=== PATIENT | female | born 1975 | race Two or more races ===

== ENCOUNTER 2024-05-16 22:31 | Inpatient (IN) | payer OTHER ==
[~2024-05-16] VITALS: Ht 157.5 cm; Wt 102.1 kg
[~2024-05-16 22:31] MED LIST: AZOR 5/40 MG TA1 TAB
[2024-05-16] MEDS ORDERED: METFORMIN HCL500 M3 (23:10)
[2024-05-16] MEDS ORDERED: SYNTHROID125 MCG (23:10)
[2024-05-16] MEDS ORDERED: AVAPRO75 MG (23:10)
[2024-05-17] MEDS ORDERED: GUAIFENESIN 200 MG/10 ML BLIST.PACK PO STA (00:17)
[2024-05-17] MEDS ORDERED: METHYLPREDNISOLONE SOD SUCC 125 MG VIAL IV STA (00:18)
[2024-05-17] MEDS ORDERED: ACETAMINOPHEN 500 MG GEL..CAP PO STA (00:19)
[2024-05-17] MEDS ORDERED: ALBUTEROL SULFATE 3 ML/2.5 MG AMPUL.NEB IH SCH ×2 (00:30→02:00)
[2024-05-17 00:40] LABS: HEMATOCRIT 38.8 % (36.0-45.00); HEMOGLOBIN 13.3 g/dL (12.0-15.00); MEAN CELL VOLUME 83.6 fL (80.00-100.00); MEAN CORPUSCULAR HEMOGLOBIN 28.7 pg (27.00-32.0); MEAN CORPUSCULAR HGB CONC 34.3 g/dl (32.0-36.0); PLATELET COUNT 266 K/uL (150-450); RED BLOOD COUNT 4.64 M/uL (4.00-6.00); RED CELL DISTRIBUTION WIDTH 14.1 % (11.5-14.5)
[2024-05-17 01:03] LABS: INR 1.05; PARTIAL THROMBOPLASTIN TIME 28.5 SECONDS (22.0-34.0); PROTHROMBIN TIME 11.4 SECONDS (9.0-11.5)
[2024-05-17 01:07] LABS: ALBUMIN 3.2 gm/dL (3.4-5.0); BILIRUBIN TOTAL 0.64 mg/dL (0.3-1.2); CALCIUM 8.9 mg/dL (8.5-10.1); CREATININE SERUM 0.88 mg/dL (0.55-1.02); GFR 68.01; GLOBULINA 4.6 G/DL (2.4-3.5); POTASSIUM 3.12 mEq/L (3.5-5.1); TOTAL PROTEIN 7.8 gm/dL (6.4-8.2)
[2024-05-17] MEDS ORDERED: AZITHROMYCIN 500 MG VIAL IV STA (01:42)
[2024-05-17 01:52] LABS: ABG PH 7.494 (7.35-7.45); ABG PO2 49.8 mmHg (80-100); ABG pCO2 29.8 mmHg (35-45); BASE EXCESS 0.3 mmol/l; BICARBONATE 22.4 mmol/l (23-25); SaO2 88.4 %; Tco2 23.3 mmol/l; allen test SATISFACTORY; o2 21 %; puncture site RADIAL RIGHT
[2024-05-17 02:25] LABS: PH,URINE 6.5 (5.0-8.0); URINE APPEARANCE Clear; URINE BILIRRUBIN Negative (NEGATIVE); URINE BLOOD Moderate; URINE COLOR Yellow; URINE GLUCOSE Negative (NEGATIVE); URINE KETONE Negative (NEGATIVE); URINE LEUKOCYTE Negative; URINE NITRATE Negative
[2024-05-17 02:30] LABS: URINE BACTERIA 2785.8 uL (0.0-1933); URINE RBC 22.8 uL (0.0-20.8)
[2024-05-17 02:36] LABS: URINE PROTEIN 300 (NEGATIVE)
[2024-05-17] MEDS ORDERED: 0.9 % SODIUM CHLORIDE 1,000 ML IV STA (08:20)
[2024-05-17] MEDS ORDERED: DEXTROSE 50 % IN WATER 0.5 G/ML DISP.SYRIN IV PRN (08:30)
[2024-05-17] MEDS ORDERED: POTASSIUM CHLORIDE 20MEQ/100ML H2O PB IV ONE (08:30)
[2024-05-17] MEDS ORDERED: INSULIN LISPRO 1,000 UNIT/10 ML UNITS SUBCUTANEO PRN (08:30)
[2024-05-17] MEDS ORDERED: RINGERS SOLUTION,LACTATED 1,000 ML IV SCH (08:30)
[2024-05-17 08:43] LABS: ABG PH 7.392 (7.35-7.45); ABG PO2 79.7 mmHg (80-100); ABG pCO2 35.5 mmHg (35-45); BASE EXCESS -3.1 mmol/l; BICARBONATE 21.1 mmol/l (23-25); SaO2 95.4 %; Tco2 22.2 mmol/l
[2024-05-17] MEDS ORDERED: CEFTRIAXONE SODIUM 2,000 MG VIAL IV SCH (09:00)
[2024-05-17] MEDS ORDERED: AZITHROMYCIN 500 MG in 0.9 % SODIUM CHLORIDE 250 ML IV SCH (09:00)
[2024-05-17] MEDS ORDERED: LEVALBUTEROL HCL 0.63 MG/3 ML SOLUTION IH SCH (09:00)
[2024-05-17] MEDS ORDERED: OSELTAMIVIR PHOSPHATE 75 MG CAPSULE PO SCH (09:00)
[2024-05-17] MEDS ORDERED: IPRATROPIUM BROMIDE 0.5 MG/2.5 ML AMPUL.NEB IH SCH (09:00)
[2024-05-17] MEDS ORDERED: FAMOTIDINE/PF 20 MG/2 ML VIAL IV SCH (09:00)
[2024-05-17] MEDS ORDERED: ENOXAPARIN SODIUM 40 MG/0.4 ML SYRINGE SUBCUTANEO SCH (09:00)
[2024-05-17] MEDS ORDERED: POTASSIUM BICARBONATE/CIT AC 25 MEQ TABLET.EFF PO SCH (09:00)
[2024-05-17 09:31] VITALS: BP 102/73
[2024-05-17 09:42] LABS: MAGNESIUM 2.1 mg/dL (1.8-2.4); PHOSPHOROUS 4.7 mg/dL (2.5-4.9)
[2024-05-17 09:51] LABS: CHOL HDL RATIO 5.1 (0-5.0); TSH 1.64 uIU/mL (0.358-3.74)
[2024-05-17 17:34] VITALS: BP 139/83
[2024-05-17 22:44] LABS: allen test SATISFACTORY; o2 50 %; puncture site RADIAL LEFT
[2024-05-18 00:45] VITALS: BP 121/75; O2SAT 97
[2024-05-18] MEDS ORDERED: BENZONATATE 100 MG CAPSULE PO PRN (01:15)
[2024-05-18 06:13] LABS: ABG PH 7.435 (7.35-7.45); ABG pCO2 34.7 mmHg (35-45)
[2024-05-18 06:14] LABS: ABG PO2 57.2 mmHg (80-100); BASE EXCESS -0.8 mmol/l; BICARBONATE 22.8 mmol/l (23-25); SaO2 90.3 %; Tco2 23.8 mmol/l; allen test SATISFACTORY; o2 50 %; puncture site RADIAL LEFT
[2024-05-18 09:04] VITALS: BP 149/84
[2024-05-18 10:40] LABS: HEMATOCRIT 36.7 % (36.0-45.00); HEMOGLOBIN 12.3 g/dL (12.0-15.00); MEAN CELL VOLUME 84.2 fL (80.00-100.00); MEAN CORPUSCULAR HEMOGLOBIN 28.2 pg (27.00-32.0); MEAN CORPUSCULAR HGB CONC 33.4 g/dl (32.0-36.0); PLATELET COUNT 289 K/uL (150-450); RED BLOOD COUNT 4.36 M/uL (4.00-6.00); RED CELL DISTRIBUTION WIDTH 14.7 % (11.5-14.5)
[2024-05-18 11:25] LABS: ALBUMIN 2.8 gm/dL (3.4-5.0); BILIRUBIN TOTAL 0.55 mg/dL (0.3-1.2); CALCIUM 8.5 mg/dL (8.5-10.1); CREATININE SERUM 0.71 mg/dL (0.55-1.02); GFR 87.13; GLOBULINA 3.8 G/DL (2.4-3.5); MAGNESIUM 2.3 mg/dL (1.8-2.4); POTASSIUM 4.78 mEq/L (3.5-5.1); TOTAL PROTEIN 6.6 gm/dL (6.4-8.2)
[2024-05-18 11:34] LABS: PHOSPHOROUS 1.8 mg/dL (2.5-4.9)
[2024-05-18] MEDS ORDERED: LEVALBUTEROL HCL 0.63 MG/3 ML SOLUTION IH SCH (13:00)
[2024-05-18 16:42] VITALS: BP 133/85; O2SAT 94
[2024-05-19 00:49] VITALS: BP 133/85; O2SAT 92
[2024-05-19 05:11] LABS: ALBUMIN 2.7 gm/dL (3.4-5.0); BILIRUBIN TOTAL 0.68 mg/dL (0.3-1.2); CALCIUM 8.4 mg/dL (8.5-10.1); CREATININE SERUM 0.56 mg/dL (0.55-1.02); GFR 114.59; GLOBULINA 3.9 G/DL (2.4-3.5); POTASSIUM 4.3 mEq/L (3.5-5.1); TOTAL PROTEIN 6.6 gm/dL (6.4-8.2)
[2024-05-19 05:16] LABS: HEMOGLOBIN 12.3 g/dL (12.0-15.00); MEAN CELL VOLUME 84.3 fL (80.00-100.00); MEAN CORPUSCULAR HEMOGLOBIN 28.8 pg (27.00-32.0); MEAN CORPUSCULAR HGB CONC 34.2 g/dl (32.0-36.0); PLATELET COUNT 297 K/uL (150-450); RED BLOOD COUNT 4.27 M/uL (4.00-6.00); RED CELL DISTRIBUTION WIDTH 14.4 % (11.5-14.5)
[2024-05-19 09:35] VITALS: BP 151/83; O2SAT 99
[2024-05-19 16:34] VITALS: BP 151/98; O2SAT 97
[2024-05-19] MEDS ORDERED: BENZONATATE 100 MG CAPSULE PO SCH (17:00)
[2024-05-19] MEDS ORDERED: CODEINE PHOSPHATE/GUAIFENESIN 5 ML ML PO SCH (19:44)
[2024-05-19] MEDS ORDERED: INSULIN GLARGINE,HUM.REC.ANLOG 1,000 UNITS/10 ML UNITS SUBCUTANEO SCH (21:00)
[2024-05-19] MEDS ORDERED: IPRATROPIUM BROMIDE 0.5 MG/2.5 ML AMPUL.NEB IH SCH (21:00)
[2024-05-20 02:02] VITALS: BP 138/85; O2SAT 98
[2024-05-20 08:26] VITALS: BP 126/76; O2SAT 94
[2024-05-20] MEDS ORDERED: INSULIN GLARGINE,HUM.REC.ANLOG 1,000 UNITS/10 ML UNITS SUBCUTANEO SCH (09:00)
[2024-05-20] MEDS ORDERED: BENZONATATE 200 MG CAPSULE PO SCH (09:00)
[2024-05-20] MEDS ORDERED: METHYLPREDNISOLONE SOD SUCC 40 MG VIAL IV SCH (17:49)
[2024-05-20 18:11] VITALS: BP 145/91; O2SAT 98
[2024-05-21 01:24] VITALS: BP 142/88
[2024-05-21 09:00] VITALS: BP 138/82; O2SAT 98
[2024-05-21] MEDS ORDERED: FAMOtidine 20 MG TABLET PO SCH (09:00)
[2024-05-21] MEDS ORDERED: METHYLPREDNISOLONE SOD SUCC 40 MG VIAL IV SCH (17:00)
[2024-05-21 19:57] VITALS: BP 146/85
[2024-05-22 00:04] VITALS: BP 130/76; O2SAT 98
[2024-05-22 09:09] VITALS: BP 134/77
[2024-05-22 16:14] VITALS: BP 137/86; O2SAT 95
[2024-05-23 03:20] VITALS: BP 138/75; O2SAT 96
[2024-05-23 07:38] LABS: CALCIUM 9.1 mg/dL (8.5-10.1); CREATININE SERUM 0.81 mg/dL (0.55-1.02); GFR 74.84; MAGNESIUM 2.5 mg/dL (1.8-2.4); POTASSIUM 4.73 mEq/L (3.5-5.1)
[2024-05-23 08:00] LABS: HEMATOCRIT 35.6 % (36.0-45.00); HEMOGLOBIN 11.8 g/dL (12.0-15.00); MEAN CELL VOLUME 84.9 fL (80.00-100.00); MEAN CORPUSCULAR HEMOGLOBIN 28.1 pg (27.00-32.0); MEAN CORPUSCULAR HGB CONC 33.1 g/dl (32.0-36.0); PLATELET COUNT 442 K/uL (150-450); RED BLOOD COUNT 4.19 M/uL (4.00-6.00); RED CELL DISTRIBUTION WIDTH 14.4 % (11.5-14.5)
[2024-05-23] MEDS ORDERED: INSULIN LISPRO 1,000 UNIT/10 ML UNITS SUBCUTANEO SCH (08:00)
[2024-05-23 08:48] VITALS: BP 118/68
[2024-05-23] MEDS ORDERED: INSULIN GLARGINE,HUM.REC.ANLOG 1,000 UNITS/10 ML UNITS SUBCUTANEO SCH (09:00)
[2024-05-23 16:32] VITALS: BP 146/89; O2SAT 95
[2024-05-24 02:16] VITALS: BP 120/70; O2SAT 99
[2024-05-24] MEDS ORDERED: INSULIN LISPRO 1,000 UNIT/10 ML UNITS SUBCUTANEO SCH (08:00)
[2024-05-24] MEDS ORDERED: INSULIN GLARGINE,HUM.REC.ANLOG 1,000 UNITS/10 ML UNITS SUBCUTANEO SCH (09:00)
[2024-05-24 11:32] VITALS: BP 113/71; O2SAT 97
[2024-05-24 13:50] LABS: ABG PH 7.418 (7.35-7.45); ABG PO2 73.3 mmHg (80-100); ABG pCO2 40.4 mmHg (35-45); BICARBONATE 25.5 mmol/l (23-25); SaO2 94.8 %; Tco2 26.7 mmol/l; o2 21 %
[2024-05-24 13:51] LABS: allen test SATISFACTORY; puncture site RADIAL RIGHT
[2024-05-24 18:08] VITALS: BP 123/74; O2SAT 96
[2024-05-25 00:12] VITALS: BP 121/74; O2SAT 93
[2024-05-25 02:03] VITALS: O2SAT 95
[2024-05-25 09:17] VITALS: BP 148/55; O2SAT 97
[2024-05-25] MEDS ORDERED: INSULIN GLARGINE,HUM.REC.ANLOG 1,000 UNITS/10 ML UNITS SUBCUTANEO SCH (10:00)
[2024-05-25] MEDS ORDERED: INSULIN LISPRO 1,000 UNIT/10 ML UNITS SUBCUTANEO SCH (12:00)
[2024-05-25] MEDS ORDERED: BENZONATATE200 M1 PO (12:53)
[2024-05-25] MEDS ORDERED: LEVALBUTER0.31 MG/3 IH (12:53)
[2024-05-25] MEDS ORDERED: JANUMET 50-5001 EACH PO (12:54)
[2024-05-25 16:22] VITALS: BP 140/80; O2SAT 98
[2024-05-26] MEDS ORDERED: METHYLPREDNISOLONE SOD SUCC 40 MG VIAL IV SCH (09:00)
== END 2024-05-25 17:04 | disposition home or self-care (01) | DRG 195 ==
LOC: ER 22:33 → MEDI 05-17 09:19 → SEC-K 05-17 09:19 → MEDI 05-17 12:23
PROVIDERS: General Practice; Internal Medicine; ADMIT Internal Medicine; ATTEND Internal Medicine
PROC: BW24ZZZ Computerized Tomography (CT Scan) of Chest and Abdomen (ICD-10-PCS; principal; 2024-05-17)
DX: J10.00 Influenza due to other identified influenza virus with unspecified type of pneumonia (principal); R09.02 Hypoxemia; E11.65 Type 2 diabetes mellitus with hyperglycemia; G47.33 Obstructive sleep apnea (adult) (pediatric); E03.9 Hypothyroidism, unspecified; E78.5 Hyperlipidemia, unspecified; Z79.4 Long term (current) use of insulin; I10 Essential (primary) hypertension

== ENCOUNTER 2024-06-07 04:17 | Inpatient (IN) | payer OTHER ==
[~2024-06-07] VITALS: Ht 157.5 cm; Wt 99.8 kg
[~2024-06-07 04:17] MED LIST changes: +AVAPRO75 MG; +BENZONATATE200 M1 PO; +JANUMET 50-5001 EACH PO; +LEVALBUTER0.31 MG/3 IH; +METFORMIN HCL500 M3; +SYNTHROID125 MCG
--- NOTE | 2024-06-07 04:26 | NUR ---
PACIENTE FEMENINA ALERTA Y ORIENTADA X3, REFIERE DOLOR DE PECHO Y DIFICULTAD AL RESPIRAR.
[2024-06-07] MEDS ORDERED: IPRATROPIUM/ALBUTEROL SULFATE 3 ML AMPUL.NEB IH STA (04:40)
--- NOTE | 2024-06-07 04:40 | NUR ---
SE LE ORIENTA A PACIENTE SOBRE LA ORDEN MEDICA, REFIERE ENTENDER LAS MISMAS. SE LE REALIZA LA PLACA SAMANTHA LA ORDEN MEDICA.
[2024-06-07] MEDS ORDERED: RINGERS SOLUTION,LACTATED 1,000 ML IV STA (04:43)
[2024-06-07 05:04] LABS: MEAN CELL VOLUME 84.8 fL (80.00-100.00); MEAN CORPUSCULAR HEMOGLOBIN 28.3 pg (27.00-32.0); MEAN CORPUSCULAR HGB CONC 33.4 g/dl (32.0-36.0); PLATELET COUNT 277 K/uL (150-450); RED BLOOD COUNT 4.24 M/uL (4.00-6.00); RED CELL DISTRIBUTION WIDTH 14.6 % (11.5-14.5)
[2024-06-07 05:30] LABS: CALCIUM 9.3 mg/dL (8.5-10.1); CREATININE SERUM 0.93 mg/dL (0.55-1.02); GFR 63.81; POTASSIUM 3.52 mEq/L (3.5-5.1)
[2024-06-07 06:09] LABS: ABG PH 7.492 (7.35-7.45); ABG PO2 62.5 mmHg (80-100); ABG pCO2 24.4 mmHg (35-45); BASE EXCESS -3.1 mmol/l; BICARBONATE 18.2 mmol/l (23-25); SaO2 93.4 %; o2 21 %
[2024-06-07 06:10] LABS: allen test SATISFACTORY; puncture site RADIAL RIGHT
[2024-06-07] MEDS ORDERED: ACETAMINOPHEN 500 MG GEL..CAP PO ONE (06:30)
[2024-06-07] MEDS ORDERED: levoFLOXacin IN DEXTROSE 5 % 5 MG/ML PIGGYBAG IV STA (06:37)
[2024-06-07] MEDS ORDERED: IPRATROPIUM/ALBUTEROL SULFATE 3 ML AMPUL.NEB IH SCH (12:00)
--- NOTE | 2024-06-07 16:27 | NUR ---
SE RECIBE PTE ENTREGADO POR SUPP TERE. PTE ALERTA Y ORIENTADA X3 LA MISMA SE OBSERVA CON #20 EN BRAZO DERECHO BAJANDO R/L @ 60ML/HR. SE OBSERVA CONECTADA A MONITOR CARDIACO Y OXIMETRIA DE PULSO. EXTREMIDADES SIN EDEMAS NI ERITEMAS. ABDOMEN DEPRESIBLE AL TACTO CON PERISTARSIS PRESENTE. AREA PERIANAL MONSE DE ENROJECIMEINTO SIN HUMPHREYS EN POSICION ORINANDO EXPONTANEO. PACIENTE CON CANULA NASAL A 2 LITROS LA CUAL TOLERA. SE REALIZAN VITALES Y SE DOCUMENTAN. PTE EN ESPERA DE CONSULTA CON DR STAN SAINI POR PULMONIA.
--- NOTE | 2024-06-07 17:50 | NUR ---
SE HACE ENTREGA DE PTE A RN HART SOBRE ORDENES DE PACIENTE Y ORDENES PENDIENTES DE LA MISMA. SE COLOCA A PTE EN CAMA EN AREA DE SEC K Y SE CONECTA A MONITOR CARDIACO Y OXIMETRIA DE PULSO. CANULA NASAL A 3 LITROS LA CUAL TOLERA EN TOTALIDAD. PACIENTE ALERTA Y ORIENTADA X3, VENPUNCIONES PATENTES.
[2024-06-07] MEDS ORDERED: CEFTRIAXONE SODIUM 2,000 MG in 0.9 % SODIUM CHLORIDE 100 ML IV SCH (20:49)
[2024-06-07] MEDS ORDERED: AZITHROMYCIN 500 MG in DEXTROSE 5 % IN WATER 250 ML IV SCH (20:50)
[2024-06-07] MEDS ORDERED: BUDESONIDE 0.5 MG/2 ML AMPUL.NEB IH SCH (21:00)
[2024-06-07] MEDS ORDERED: GUAIFEN/DEXTROMETHORPHAN/PE 10 ML BLIST.PACK PO SCH (21:00)
[2024-06-07] MEDS ORDERED: 0.9 % SODIUM CHLORIDE 1,000 ML IV SCH (21:00)
[2024-06-07] MEDS ORDERED: INSULIN LISPRO 1,000 UNIT/10 ML UNITS SUBCUTANEO PRN (21:00)
[2024-06-07] MEDS ORDERED: ACETAMINOPHEN 500 MG GEL..CAP PO PRN (21:00)
[2024-06-07] MEDS ORDERED: DEXTROSE 50 % IN WATER 0.5 G/ML DISP.SYRIN IV PRN (21:00)
[2024-06-07 21:45] VITALS: BP 119/60
[2024-06-07 22:27] LABS: INR 1.06; PROTHROMBIN TIME 11.5 SECONDS (9.0-11.5)
[2024-06-07 23:49] VITALS: BP 135/77; O2SAT 98
[2024-06-08] MEDS ORDERED: LEVALBUTEROL HCL 1.25 MG/3 ML SOLUTION IH SCH
[2024-06-08] MEDS ORDERED: IPRATROPIUM BROMIDE 0.5 MG/2.5 ML AMPUL.NEB IH SCH (02:00)
[2024-06-08] MEDS ORDERED: LEVOTHYROXINE SODIUM 125 MCG TABLET PO SCH (06:00)
[2024-06-08 07:39] VITALS: BP 108/75; O2SAT 97
[2024-06-08 09:00] LABS: PH,URINE 5.5 (5.0-8.0); URINE APPEARANCE Clear; URINE BILIRRUBIN Negative (NEGATIVE); URINE BLOOD Negative; URINE COLOR Yellow; URINE GLUCOSE Negative (NEGATIVE); URINE KETONE Negative (NEGATIVE); URINE LEUKOCYTE Small; URINE NITRATE Negative; URINE PROTEIN 30 (NEGATIVE); URINE UROBILINOGEN 0.2 E.U./dl
[2024-06-08] MEDS ORDERED: ENOXAPARIN SODIUM 40 MG/0.4 ML SYRINGE SUBCUTANEO SCH (09:00)
[2024-06-08] MEDS ORDERED: levoFLOXacin IN DEXTROSE 5 % 150 ML IV SCH (09:00)
[2024-06-08] MEDS ORDERED: AMLODIPINE BESYLATE 5 MG TABLET PO SCH (09:00)
[2024-06-08] MEDS ORDERED: FAMOTIDINE/PF 20 MG in 0.9 % SODIUM CHLORIDE 8 ML IV PUSH SCH (09:00)
[2024-06-08] MEDS ORDERED: ATORVASTATIN CALCIUM 40 MG TABLET PO SCH (09:00)
[2024-06-08 09:04] LABS: URINE BACTERIA 331.3 uL (0.0-1933); URINE EPITHELIAL CELLS 25.8 uL (0.0-38.8); URINE RBC 56.3 uL (0.0-20.8); URINE WBC 125.8 uL (0.0-23.2)
[2024-06-08 09:24] LABS: ABG PH 7.401 (7.35-7.45); ABG PO2 61.3 mmHg (80-100); ABG pCO2 35.4 mmHg (35-45); BASE EXCESS -2.6 mmol/l; BICARBONATE 21.5 mmol/l (23-25); Tco2 22.6 mmol/l; o2 21 %
[2024-06-08 09:25] LABS: allen test SATISFACTORY; puncture site RADIAL LEFT
[2024-06-08] MEDS ORDERED: METHYLPREDNISOLONE SOD SUCC 40 MG VIAL IV SCH (13:00)
[2024-06-08 14:58] VITALS: O2SAT 96
[2024-06-08 16:44] VITALS: BP 160/85; O2SAT 97
[2024-06-08] MEDS ORDERED: DIPHENHYDRAMINE HCL 50 MG/ML VIAL 1ML IV ONE (16:45)
[2024-06-08 17:09] VITALS: O2SAT 90
[2024-06-08 21:40] VITALS: O2SAT 94
[2024-06-08] MEDS ORDERED: ENOXAPARIN SODIUM 100 MG/ML SYRINGE SUBCUTANEO STA (23:10)
[2024-06-08] MEDS ORDERED: RINGERS SOLUTION,LACTATED 1,000 ML IV SCH (23:30)
[2024-06-08 23:43] LABS: ABG PH 7.408 (7.35-7.45); ABG PO2 138.3 mmHg (80-100); ABG pCO2 32.1 mmHg (35-45); BASE EXCESS -3.8 mmol/l; BICARBONATE 19.8 mmol/l (23-25); SaO2 99.1 %
[2024-06-08 23:44] LABS: Tco2 20.8 mmol/l; allen test SATISFACTORY; o2 100 %; puncture site RADIAL RIGHT
[2024-06-09] VITALS (22 sets, daily range): BP systolic 99–181; BP diastolic 63–116; O2SAT 79–98
[2024-06-09 06:29] LABS: HEMATOCRIT 36.4 % (36.0-45.00); MEAN CELL VOLUME 85.5 fL (80.00-100.00); MEAN CORPUSCULAR HEMOGLOBIN 28.2 pg (27.00-32.0); PLATELET COUNT 309 K/uL (150-450); RED BLOOD COUNT 4.25 M/uL (4.00-6.00); RED CELL DISTRIBUTION WIDTH 14.6 % (11.5-14.5)
[2024-06-09 06:35] LABS: ABG PH 7.377 (7.35-7.45); ABG PO2 69.6 mmHg (80-100); ABG pCO2 36.9 mmHg (35-45); BASE EXCESS -3.4 mmol/l; BICARBONATE 21.2 mmol/l (23-25); SaO2 93.1 %; Tco2 22.3 mmol/l
[2024-06-09 06:36] LABS: allen test SATISFACTORY; o2 100 %; puncture site RADIAL LEFT
[2024-06-09 07:22] LABS: ALBUMIN 3.4 gm/dL (3.4-5.0); BILIRUBIN TOTAL 0.54 mg/dL (0.3-1.2); CALCIUM 9.4 mg/dL (8.5-10.1); CREATININE SERUM 0.74 mg/dL (0.55-1.02); GFR 83.07; GLOBULINA 3.8 G/DL (2.4-3.5); MAGNESIUM 2.3 mg/dL (1.8-2.4); PHOSPHOROUS 3.6 mg/dL (2.5-4.9); POTASSIUM 4.59 mEq/L (3.5-5.1); TOTAL PROTEIN 7.2 gm/dL (6.4-8.2)
[2024-06-09] MEDS ORDERED: ENOXAPARIN SODIUM 100 MG/ML SYRINGE SUBCUTANEO SCH (09:00)
[2024-06-09] MEDS ORDERED: LINEZOLID 600 MG TABLET PO SCH (09:00)
[2024-06-09 10:52] LABS: ABG PH 7.422 (7.35-7.45); ABG PO2 62.3 mmHg (80-100); ABG pCO2 33.3 mmHg (35-45); BASE EXCESS -2.3 mmol/l; BICARBONATE 21.2 mmol/l (23-25); SaO2 91.9 %; Tco2 22.3 mmol/l; allen test SATISFACTORY; o2 70 %; puncture site RADIAL RIGHT
[2024-06-09] MEDS ORDERED: MIDAZOLAM HCL 50 MG in 0.9 % SODIUM CHLORIDE 50 ML IV SCH (14:45)
[2024-06-09] MEDS ORDERED: PROPOFOL 100 ML IV SCH (14:45)
[2024-06-09] MEDS ORDERED: fentaNYL CITRATE 50 MCG/ML AMPUL IV PUSH STA (15:20)
[2024-06-09] MEDS ORDERED: CHLORHEXIDINE GLUCONATE 15ML BRUSH KIT MM SCH (18:29)
[2024-06-09] MEDS ORDERED: POLYVINYL ALCOHOL 15 ML DROPS OP SCH (18:30)
[2024-06-09] MEDS ORDERED: MIDAZOLAM HCL 100 MG in 0.9 % SODIUM CHLORIDE 100 ML IV SCH (18:45)
[2024-06-09 18:49] LABS: ABG PH 7.372 (7.35-7.45); ABG pCO2 37.3 mmHg (35-45); BASE EXCESS -3.5 mmol/l; BICARBONATE 21.1 mmol/l (23-25); SaO2 85.5 %; Tco2 22.3 mmol/l; o2 100 %
[2024-06-09 18:50] LABS: ABG PO2 52.7 mmHg (80-100); allen test SATISFACTORY; puncture site RADIAL LEFT
[2024-06-09 19:27] LABS: ABG PH 7.403 (7.35-7.45); SaO2 95.5 %
[2024-06-09 19:28] LABS: ABG pCO2 35.3 mmHg (35-45); BASE EXCESS -2.5 mmol/l; BICARBONATE 21.6 mmol/l (23-25); Tco2 22.7 mmol/l; allen test SATISFACTORY; o2 100 %; puncture site RADIAL LEFT
[2024-06-09] MEDS ORDERED: NOREPINEPHRINE BITARTRATE 8 MG in DEXTROSE 5 % IN WATER 250 ML IV SCH (21:30)
[2024-06-09] MEDS ORDERED: MEROPENEM 1,000 MG in 0.9 % SODIUM CHLORIDE 100 ML IV SCH (22:03)
[2024-06-09] MEDS ORDERED: LINEZOLID IN DEXTROSE 5% 300 ML IV SCH (22:03)
[2024-06-09] MEDS ORDERED: TUBERCULIN,PURIF.PROT.DERIV. 5 TU/0.1 ML VIAL ID ONE (22:15)
[2024-06-10] VITALS (23 sets, daily range): BP systolic 96–139; BP diastolic 58–82; O2SAT 96–100
[2024-06-10 04:54] LABS: HEMATOCRIT 32.5 % (36.0-45.00); HEMOGLOBIN 10.9 g/dL (12.0-15.00); MEAN CELL VOLUME 84.2 fL (80.00-100.00); MEAN CORPUSCULAR HEMOGLOBIN 28.3 pg (27.00-32.0); MEAN CORPUSCULAR HGB CONC 33.5 g/dl (32.0-36.0); PLATELET COUNT 346 K/uL (150-450); RED BLOOD COUNT 3.85 M/uL (4.00-6.00); RED CELL DISTRIBUTION WIDTH 14.6 % (11.5-14.5)
[2024-06-10 05:36] LABS: ALBUMIN 2.9 gm/dL (3.4-5.0); BILIRUBIN TOTAL 0.56 mg/dL (0.3-1.2); CALCIUM 8.6 mg/dL (8.5-10.1); CREATININE SERUM 0.86 mg/dL (0.55-1.02); GFR 69.84; GLOBULINA 3.4 G/DL (2.4-3.5); MAGNESIUM 2.1 mg/dL (1.8-2.4); PHOSPHOROUS 3.4 mg/dL (2.5-4.9); POTASSIUM 4.18 mEq/L (3.5-5.1); TOTAL PROTEIN 6.3 gm/dL (6.4-8.2)
[2024-06-10] MEDS ORDERED: MEROPENEM 500 MG in 0.9 % SODIUM CHLORIDE 50 ML IV SCH (08:00)
[2024-06-10 08:52] LABS: PLATELET ESTIMATE NORMAL (NORMAL)
[2024-06-10] MEDS ORDERED: ENOXAPARIN SODIUM 40 MG/0.4 ML SYRINGE SUBCUTANEO SCH (09:00)
[2024-06-10 10:54] LABS: ABG PO2 159.4 mmHg (80-100); ABG pCO2 41.4 mmHg (35-45); BASE EXCESS -0.6 mmol/l; BICARBONATE 24.4 mmol/l (23-25); SaO2 99.4 %; Tco2 25.6 mmol/l
[2024-06-10 10:55] LABS: allen test SATISFACTORY; o2 100 %; puncture site RADIAL LEFT
[2024-06-10 11:02] LABS: RF NEGATIVE (NEGATIVE)
[2024-06-10 13:38] LABS: ABG PH 7.377 (7.35-7.45); ABG PO2 87.6 mmHg (80-100); ABG pCO2 42.2 mmHg (35-45); BICARBONATE 24.2 mmol/l (23-25); SaO2 96.4 %; Tco2 25.5 mmol/l
[2024-06-10 13:39] LABS: allen test SATISFACTORY; o2 70 %; puncture site RADIAL LEFT
[2024-06-11] VITALS (27 sets, daily range): BP systolic 94–134; BP diastolic 53–84; O2SAT 95–100
[2024-06-11 06:39] LABS: HEMATOCRIT 29.9 % (36.0-45.00); HEMOGLOBIN 10.3 g/dL (12.0-15.00); MEAN CELL VOLUME 84.3 fL (80.00-100.00); MEAN CORPUSCULAR HEMOGLOBIN 29.1 pg (27.00-32.0); MEAN CORPUSCULAR HGB CONC 34.5 g/dl (32.0-36.0); PLATELET COUNT 277 K/uL (150-450); RED BLOOD COUNT 3.55 M/uL (4.00-6.00); RED CELL DISTRIBUTION WIDTH 14.9 % (11.5-14.5)
[2024-06-11 06:58] LABS: ALBUMIN 2.7 gm/dL (3.4-5.0); BILIRUBIN TOTAL 0.49 mg/dL (0.3-1.2); CALCIUM 8.4 mg/dL (8.5-10.1); CREATININE SERUM 0.77 mg/dL (0.55-1.02); GFR 79.35; MAGNESIUM 2.2 mg/dL (1.8-2.4); PHOSPHOROUS 2.1 mg/dL (2.5-4.9); POTASSIUM 3.91 mEq/L (3.5-5.1); TOTAL PROTEIN 5.7 gm/dL (6.4-8.2)
[2024-06-11 10:21] LABS: ABG PH 7.479 (7.35-7.45); ABG PO2 291.2 mmHg (80-100); ABG pCO2 32.6 mmHg (35-45); BICARBONATE 23.7 mmol/l (23-25); SaO2 99.9 %; Tco2 24.7 mmol/l
[2024-06-11 10:25] LABS: o2 50 %
[2024-06-11 10:26] LABS: allen test SATISFACTORY; puncture site RADIAL LEFT
[2024-06-11] MEDS ORDERED: POTASSIUM PHOS,M-BASIC-D-BASIC 15 MM in 0.9 % SODIUM CHLORIDE 250 ML IV ONE (12:00)
[2024-06-11] MEDS ORDERED: hydrALAZINE HCL 10 MG TABLET PO SCH (13:00)
[2024-06-11] MEDS ORDERED: FUROsemide 20 MG/2 ML VIAL IV SCH (17:00)
[2024-06-11 17:03] LABS: ABG PH 7.438 (7.35-7.45)
[2024-06-11 17:04] LABS: ABG PO2 73.2 mmHg (80-100); BASE EXCESS 0.6 mmol/l; BICARBONATE 24.5 mmol/l (23-25); SaO2 95.1 %; Tco2 25.6 mmol/l; allen test SATISFACTORY; o2 40 %; puncture site RADIAL RIGHT
[2024-06-11] MEDS ORDERED: GUAIFEN/DEXTROMETHORPHAN/PE 10 ML BLIST.PACK PO SCH (17:27)
[2024-06-12] VITALS (15 sets, daily range): BP systolic 107–157; BP diastolic 67–86; O2SAT 95–98
[2024-06-12 08:25] LABS: ABG PH 7.458 (7.35-7.45); ABG PO2 95.4 mmHg (80-100); ABG pCO2 41.6 mmHg (35-45); BASE EXCESS 4.5 mmol/l; BICARBONATE 28.8 mmol/l (23-25); SaO2 97.9 %; Tco2 30.1 mmol/l
[2024-06-12 08:37] LABS: puncture site RADIAL RIGHT
[2024-06-12 08:38] LABS: allen test SATISFACTORY; o2 40 %
[2024-06-13] VITALS (15 sets, daily range): BP systolic 111–145; BP diastolic 73–96; O2SAT 95–99
[2024-06-13 07:58] LABS: HEMATOCRIT 35.2 % (36.0-45.00); HEMOGLOBIN 11.7 g/dL (12.0-15.00); MEAN CELL VOLUME 84.1 fL (80.00-100.00); MEAN CORPUSCULAR HEMOGLOBIN 27.9 pg (27.00-32.0); MEAN CORPUSCULAR HGB CONC 33.1 g/dl (32.0-36.0); PLATELET COUNT 293 K/uL (150-450); RED BLOOD COUNT 4.19 M/uL (4.00-6.00)
[2024-06-13 08:15] LABS: ALBUMIN 2.8 gm/dL (3.4-5.0); BILIRUBIN TOTAL 0.55 mg/dL (0.3-1.2); CALCIUM 8.2 mg/dL (8.5-10.1); CREATININE SERUM 0.8 mg/dL (0.55-1.02); GFR 75.92; GLOBULINA 3.4 G/DL (2.4-3.5); MAGNESIUM 2.1 mg/dL (1.8-2.4); PHOSPHOROUS 3.2 mg/dL (2.5-4.9); POTASSIUM 3.41 mEq/L (3.5-5.1); TOTAL PROTEIN 6.2 gm/dL (6.4-8.2)
[2024-06-13 08:32] LABS: FERRITIN 155.7 NG/ML (8-252)
[2024-06-13] MEDS ORDERED: POTASSIUM CHLORIDE 20MEQ/100ML H2O PB IV NR (09:45)
[2024-06-13 10:57] LABS: ABG pCO2 42.1 mmHg (35-45); BASE EXCESS 4.4 mmol/l; BICARBONATE 28.9 mmol/l (23-25); Tco2 30.1 mmol/l
[2024-06-13 10:59] LABS: allen test SATISFACTORY; o2 40 %; puncture site RADIAL RIGHT
[2024-06-14] VITALS (15 sets, daily range): BP systolic 100–120; BP diastolic 65–94; O2SAT 91–100
[2024-06-14 08:59] LABS: CYCLIC CITRULLINE PEPTIDE 5 units (0-19)
[2024-06-14] MEDS ORDERED: METHYLPREDNISOLONE SOD SUCC 40 MG VIAL IV NR (11:00)
[2024-06-14 12:46] LABS: ABG PH 7.445 (7.35-7.45); ABG pCO2 45.6 mmHg (35-45)
[2024-06-14 12:47] LABS: BASE EXCESS 5.7 mmol/l; BICARBONATE 30.7 mmol/l (23-25); SaO2 97.7 %; Tco2 32.1 mmol/l; allen test SATISFACTORY; o2 40 %; puncture site RADIAL LEFT
[2024-06-14] MEDS ORDERED: METHYLPREDNISOLONE SOD SUCC 40 MG VIAL IV SCH (21:00)
[2024-06-15] VITALS (11 sets, daily range): BP systolic 97–122; BP diastolic 64–75; O2SAT 93–99
[2024-06-15 00:04] LABS: anti MPO AB < 0.2 units (0.0-0.9); anti pr3 < 0.2 units (0.0-0.9); c anca <1:20 titer (Neg:<1:20); p anca <1:20 titer (Neg:<1:20)
[2024-06-15 06:13] LABS: HEMATOCRIT 34.9 % (36.0-45.00); HEMOGLOBIN 11.6 g/dL (12.0-15.00); MEAN CELL VOLUME 83.4 fL (80.00-100.00); MEAN CORPUSCULAR HEMOGLOBIN 27.7 pg (27.00-32.0); MEAN CORPUSCULAR HGB CONC 33.3 g/dl (32.0-36.0); PLATELET COUNT 337 K/uL (150-450); RED BLOOD COUNT 4.19 M/uL (4.00-6.00); RED CELL DISTRIBUTION WIDTH 13.8 % (11.5-14.5)
[2024-06-15] MEDS ORDERED: INSULIN NPH HUMAN ISOPHANE 1,000 UNITS/10 ML UNITS SUBCUTANEO STA (06:14)
[2024-06-15 07:14] LABS: ALBUMIN 2.9 gm/dL (3.4-5.0); BILIRUBIN TOTAL 0.5 mg/dL (0.3-1.2); CALCIUM 8.9 mg/dL (8.5-10.1); CREATININE SERUM 0.69 mg/dL (0.55-1.02); GFR 90.05; GLOBULINA 3.7 G/DL (2.4-3.5); MAGNESIUM 2.6 mg/dL (1.8-2.4); PHOSPHOROUS 3.6 mg/dL (2.5-4.9); POTASSIUM 3.68 mEq/L (3.5-5.1); TOTAL PROTEIN 6.6 gm/dL (6.4-8.2)
[2024-06-15 10:14] LABS: ABG PH 7.485 (7.35-7.45); ABG PO2 283.2 mmHg (80-100); ABG pCO2 41.2 mmHg (35-45); BASE EXCESS 6.3 mmol/l; BICARBONATE 30.3 mmol/l (23-25); SaO2 99.9 %; Tco2 31.6 mmol/l
[2024-06-15 10:15] LABS: allen test SATISFACTORY; o2 100 %; puncture site RADIAL LEFT
[2024-06-15] MEDS ORDERED: INSULIN NPH HUMAN ISOPHANE 1,000 UNITS/10 ML UNITS SUBCUTANEO SCH (13:00)
[2024-06-15 14:22] LABS: ABG PH 7.448 (7.35-7.45); ABG PO2 63.6 mmHg (80-100); ABG pCO2 46.7 mmHg (35-45); BASE EXCESS 6.5 mmol/l; BICARBONATE 31.6 mmol/l (23-25); SaO2 93.4 %
[2024-06-15 14:23] LABS: allen test SATISFACTORY; o2 50 %; puncture site RADIAL RIGHT
[2024-06-16 04:00] VITALS: BP 104/60; O2SAT 96
[2024-06-16 07:00] VITALS: BP 98/54; O2SAT 94; O2SAT 98
[2024-06-16 11:58] LABS: ABG pCO2 48.3 mmHg (35-45)
[2024-06-16 11:59] LABS: ABG PO2 48.3 mmHg (80-100); BASE EXCESS 7.4 mmol/l; BICARBONATE 32.8 mmol/l (23-25); SaO2 86.5 %; Tco2 34.3 mmol/l; allen test SATISFACTORY; o2 50 %; puncture site RADIAL RIGHT
[2024-06-16 12:00] VITALS: BP 120/83; O2SAT 95
[2024-06-16 12:04] LABS: ABG PO2 48.3 mmHg (80-100); ABG pCO2 48.3 mmHg (35-45); BASE EXCESS 7.4 mmol/l; BICARBONATE 32.8 mmol/l (23-25); SaO2 86.5 %; Tco2 34.3 mmol/l; allen test SATISFACTORY; o2 50 %; puncture site RADIAL RIGHT
[2024-06-16 15:36] VITALS: BP 122/60; O2SAT 100
[2024-06-16 18:47] LABS: URINE APPEARANCE Clear; URINE BILIRRUBIN Negative (NEGATIVE); URINE BLOOD Large; URINE COLOR Yellow; URINE GLUCOSE Negative (NEGATIVE); URINE KETONE Negative (NEGATIVE); URINE LEUKOCYTE Small; URINE NITRATE Negative; URINE PROTEIN 30 (NEGATIVE); URINE UROBILINOGEN 0.2 E.U./dl
[2024-06-16 18:50] LABS: URINE BACTERIA 71.8 uL (0.0-1933); URINE WBC 60.5 uL (0.0-23.2)
[2024-06-16 19:10] LABS: URINE EPITHELIAL CELLS 1.3 uL (0.0-38.8); URINE MUCUS SCANT
[2024-06-16 19:12] LABS: URINE YEAST MODERATE /hpf
[2024-06-16 20:00] VITALS: BP 115/65; O2SAT 96
[2024-06-16 23:24] VITALS: BP 126/82; O2SAT 98
[2024-06-17 04:00] VITALS: BP 110/74; O2SAT 96
[2024-06-17 07:23] VITALS: BP 127/75; O2SAT 97
[2024-06-17 07:27] LABS: HEMATOCRIT 34.6 % (36.0-45.00); HEMOGLOBIN 11.9 g/dL (12.0-15.00); MEAN CELL VOLUME 82.4 fL (80.00-100.00); MEAN CORPUSCULAR HEMOGLOBIN 28.3 pg (27.00-32.0); MEAN CORPUSCULAR HGB CONC 34.3 g/dl (32.0-36.0); PLATELET COUNT 345 K/uL (150-450); RED CELL DISTRIBUTION WIDTH 14.1 % (11.5-14.5)
[2024-06-17 08:13] LABS: ALBUMIN 2.9 gm/dL (3.4-5.0); BILIRUBIN TOTAL 0.49 mg/dL (0.3-1.2); CALCIUM 8.9 mg/dL (8.5-10.1); CREATININE SERUM 0.69 mg/dL (0.55-1.02); GFR 90.05; GLOBULINA 3.8 G/DL (2.4-3.5); MAGNESIUM 2.4 mg/dL (1.8-2.4); PHOSPHOROUS 3.2 mg/dL (2.5-4.9); POTASSIUM 3.14 mEq/L (3.5-5.1); TOTAL PROTEIN 6.7 gm/dL (6.4-8.2)
[2024-06-17 12:00] VITALS: BP 121/72; O2SAT 95
[2024-06-17] MEDS ORDERED: INSULIN NPH HUMAN ISOPHANE 1,000 UNITS/10 ML UNITS SUBCUTANEO SCH (13:00)
[2024-06-17] MEDS ORDERED: FLUCONAZOLE IN NACL,ISO-OSM 400 MG/200 ML PIGGYBAG IV NR (14:00)
[2024-06-17 15:21] VITALS: BP 114/65; O2SAT 96
[2024-06-17] MEDS ORDERED: POTASSIUM CHLORIDE IN WATER 100 ML IV ONE (16:00)
[2024-06-17] MEDS ORDERED: AMINO ACIDS 1 EACH TABLET PO SCH (17:00)
[2024-06-17 20:02] VITALS: BP 116/71; O2SAT 100
[2024-06-17 23:05] VITALS: BP 122/72; O2SAT 97
[2024-06-18] VITALS (7 sets, daily range): BP systolic 101–152; BP diastolic 55–89; O2SAT 85–96
[2024-06-18] MEDS ORDERED: FLUCONAZOLE IN NACL,ISO-OSM 200 ML IV SCH (09:00)
[2024-06-18] MEDS ORDERED: NIFEDIPINE 30 MG TAB.SA.OSM PO SCH (09:00)
[2024-06-18 12:19] LABS: ABG PH 7.412 (7.35-7.45); ABG PO2 116.8 mmHg (80-100); ABG pCO2 52.7 mmHg (35-45)
[2024-06-18 12:20] LABS: BASE EXCESS 6.6 mmol/l; BICARBONATE 32.8 mmol/l (23-25); SaO2 98.7 %; Tco2 34.4 mmol/l; allen test SATISFACTORY; o2 50 %; puncture site RADIAL RIGHT
[2024-06-19] VITALS (10 sets, daily range): BP systolic 102–144; BP diastolic 63–76; O2SAT 90–98
[2024-06-19] MEDS ORDERED: INSULIN NPH HUMAN ISOPHANE 1,000 UNITS/10 ML UNITS SUBCUTANEO SCH (13:00)
[2024-06-20] VITALS (8 sets, daily range): BP systolic 101–133; BP diastolic 66–76; O2SAT 89–100
[2024-06-20 23:15] LABS: HEMATOCRIT 33.1 % (36.0-45.00); MEAN CELL VOLUME 83.6 fL (80.00-100.00); MEAN CORPUSCULAR HEMOGLOBIN 28.2 pg (27.00-32.0); MEAN CORPUSCULAR HGB CONC 33.7 g/dl (32.0-36.0); PLATELET COUNT 255 K/uL (150-450); RED BLOOD COUNT 3.96 M/uL (4.00-6.00); RED CELL DISTRIBUTION WIDTH 14.1 % (11.5-14.5)
[2024-06-20 23:27] LABS: HEMOGLOBIN 11.2 g/dL (12.0-15.00)
[2024-06-20 23:39] LABS: ALBUMIN 2.7 gm/dL (3.4-5.0); BILIRUBIN TOTAL 0.56 mg/dL (0.3-1.2); CREATININE SERUM 0.71 mg/dL (0.55-1.02); GFR 87.13; GLOBULINA 2.8 G/DL (2.4-3.5); POTASSIUM 3.26 mEq/L (3.5-5.1); TOTAL PROTEIN 5.5 gm/dL (6.4-8.2)
[2024-06-21 02:17] VITALS: BP 112/71; O2SAT 97
[2024-06-21 04:56] VITALS: O2SAT 91
[2024-06-21 08:08] VITALS: BP 105/66
[2024-06-21 09:09] VITALS: O2SAT 93
[2024-06-21 12:21] LABS: ABG PH 7.457 (7.35-7.45); ABG PO2 66.4 mmHg (80-100); ABG pCO2 39.8 mmHg (35-45); BASE EXCESS 3.4 mmol/l; BICARBONATE 27.5 mmol/l (23-25); SaO2 94.1 %; Tco2 28.7 mmol/l; allen test SATISFACTORY; o2 21 %; puncture site RADIAL LEFT
[2024-06-21 16:09] VITALS: BP 117/74; O2SAT 99
[2024-06-21] MEDS ORDERED: POTASSIUM CHLORIDE 20MEQ/100ML H2O PB IV ONE (17:45)
[2024-06-21 20:00] VITALS: BP 124/74; O2SAT 95
[2024-06-22 02:12] VITALS: BP 106/68; O2SAT 97
[2024-06-22 09:10] VITALS: BP 100/53; O2SAT 97
[2024-06-22 16:27] VITALS: BP 110/72; O2SAT 96
[2024-06-23 03:01] VITALS: BP 105/66; O2SAT 96
[2024-06-23 08:39] VITALS: BP 122/76; O2SAT 95
[2024-06-23] MEDS ORDERED: INSULIN GLARGINE,HUM.REC.ANLOG 1,000 UNITS/10 ML UNITS SUBCUTANEO SCH (09:00)
[2024-06-23] MEDS ORDERED: CODEINE PHOSPHATE/GUAIFENESIN 5 ML ML PO PRN (11:00)
[2024-06-23] MEDS ORDERED: BENZONATATE 100 MG CAPSULE PO PRN (11:00)
[2024-06-23 15:04] LABS: HEMATOCRIT 39.2 % (36.0-45.00); HEMOGLOBIN 12.9 g/dL (12.0-15.00); MEAN CELL VOLUME 84.4 fL (80.00-100.00); MEAN CORPUSCULAR HEMOGLOBIN 27.8 pg (27.00-32.0); MEAN CORPUSCULAR HGB CONC 32.9 g/dl (32.0-36.0); PLATELET COUNT 281 K/uL (150-450); RED BLOOD COUNT 4.64 M/uL (4.00-6.00); RED CELL DISTRIBUTION WIDTH 14.8 % (11.5-14.5)
[2024-06-23 15:33] LABS: ALBUMIN 3.3 gm/dL (3.4-5.0); BILIRUBIN TOTAL 0.65 mg/dL (0.3-1.2); CALCIUM 9.1 mg/dL (8.5-10.1); CREATININE SERUM 0.77 mg/dL (0.55-1.02); GFR 79.35; GLOBULINA 3.2 G/DL (2.4-3.5); MAGNESIUM 1.9 mg/dL (1.8-2.4); PHOSPHOROUS 2.8 mg/dL (2.5-4.9); POTASSIUM 4.16 mEq/L (3.5-5.1); TOTAL PROTEIN 6.5 gm/dL (6.4-8.2)
[2024-06-23 16:18] VITALS: BP 130/75
[2024-06-24 01:06] VITALS: BP 110/62; O2SAT 95
[2024-06-24 08:48] VITALS: BP 113/68; O2SAT 97
[2024-06-24] MEDS ORDERED: FLUCONAZOLE200 MG PO (12:20)
[2024-06-24] MEDS ORDERED: IPRATROPIU0.2 MG/1 M IH (12:21)
[2024-06-24] MEDS ORDERED: XOPENEX CO1.25 MG/0. IH (12:21)
[2024-06-24] MEDS ORDERED: LIPITOR40 M1 PO (12:22)
[2024-06-24] MEDS ORDERED: NIFEDIPINE ER30 M1 PO (12:22)
[2024-06-24] MEDS ORDERED: GUAIFENESIN AC C5 ML PO (12:24)
[2024-06-24] MEDS ORDERED: LEVOTHYROXINE125 MCG PO (12:24)
[2024-06-24] MEDS ORDERED: GLUMETZA500 MG PO (12:25)
[2024-06-25] MEDS ORDERED: FLUCONAZOLE 200 MG TABLET PO SCH (09:00)
== END 2024-06-24 14:47 | disposition home or self-care (01) | DRG 208 ==
LOC: ER 04:19 → SEC-K 21:37 → MEDI 06-08 14:28 → ICU 06-11 12:33 → MEDI 06-18 14:31
PROVIDERS: General Practice; Internal Medicine; Internal Medicine Infectious Disease; ADMIT Internal Medicine; ATTEND Internal Medicine
PROC: 4A12X4Z Monitoring of Cardiac Electrical Activity, External Approach (ICD-10-PCS; 2024-06-08)
PROC: BW24YZZ Computerized Tomography (CT Scan) of Chest and Abdomen using Other Contrast (ICD-10-PCS; 2024-06-08)
PROC: B24BZZZ Ultrasonography of Heart with Aorta (ICD-10-PCS; 2024-06-08)
PROC: B54DZZZ Ultrasonography of Bilateral Lower Extremity Veins (ICD-10-PCS; 2024-06-08)
PROC: B54PZZZ Ultrasonography of Bilateral Upper Extremity Veins (ICD-10-PCS; 2024-06-08)
PROC: 5A1945Z Respiratory Ventilation, 24-96 Consecutive Hours (ICD-10-PCS; principal; 2024-06-09)
PROC: 0BH17EZ Insertion of Endotracheal Airway into Trachea, Via Natural or Artificial Opening (ICD-10-PCS; 2024-06-09)
PROC: 02HV33Z Insertion of Infusion Device into Superior Vena Cava, Percutaneous Approach (ICD-10-PCS; 2024-06-09)
PROC: BW24ZZZ Computerized Tomography (CT Scan) of Chest and Abdomen (ICD-10-PCS; 2024-06-21)
DX: J18.9 Pneumonia, unspecified organism (principal); J96.01 Acute respiratory failure with hypoxia; R65.21 Severe sepsis with septic shock; J45.41 Moderate persistent asthma with (acute) exacerbation; N39.0 Urinary tract infection, site not specified; I82.611 Acute embolism and thrombosis of superficial veins of right upper extremity; I10 Essential (primary) hypertension; E03.9 Hypothyroidism, unspecified; E78.5 Hyperlipidemia, unspecified; G47.33 Obstructive sleep apnea (adult) (pediatric); Z79.4 Long term (current) use of insulin; E11.65 Type 2 diabetes mellitus with hyperglycemia; E87.6 Hypokalemia; B96.89 Other specified bacterial agents as the cause of diseases classified elsewhere; I87.2 Venous insufficiency (chronic) (peripheral)
CPT/HCPCS: 71275

== ENCOUNTER 2024-07-04 13:57 | Inpatient (IN) | payer OTHER ==
[~2024-07-04] VITALS: Ht 160 cm; Wt 90.7 kg
[~2024-07-04 13:57] MED LIST changes: +FLUCONAZOLE200 MG PO; +GLUMETZA500 MG PO; +GUAIFENESIN AC C5 ML PO; +IPRATROPIU0.2 MG/1 M IH; +LEVOTHYROXINE125 MCG PO; +LIPITOR40 M1 PO; +NIFEDIPINE ER30 M1 PO; +XOPENEX CO1.25 MG/0. IH
--- NOTE | 2024-07-04 14:59 | NUR ---
SE RECIBE PACIENTE ALERTA Y ORIENTADA X3 LA CUAL AL MOMENTO SE OBSERVA FATIGADA Y CON DISTRES RESPIRATORIO. SE OBSERVA PACIENTE SATURNADO 87% Y PULSO EN 130. SE REALIZA EKG Y SE PRESENTA A DR. BUNCH. AL MOMENTO PACIENTE REFIERE QUE ESTUVO HOSPITALIZADA POR PULMONIA BILATERAL Y SE ATENDIO CON DR. DAHIANA ROBERTSON Y GOMEZ INTERNISTA FUE JOAN PIERCE.
[2024-07-04] MEDS ORDERED: levoFLOXacin IN DEXTROSE 5 % 500MG/100ML PIGGYBAG IV ONE (15:00)
[2024-07-04] MEDS ORDERED: METHYLPREDNISOLONE SOD SUCC 125 MG VIAL IV ONE ×2 (15:15→18:45)
[2024-07-04] MEDS ORDERED: IPRATROPIUM BROMIDE 0.5 MG/2.5 ML AMPUL.NEB IH SCH ×3 (15:15→21:00)
[2024-07-04] MEDS ORDERED: LEVALBUTEROL HCL 1.25 MG/3 ML SOLUTION IH SCH ×3 (15:15→21:00)
[2024-07-04] MEDS ORDERED: 0.9 % SODIUM CHLORIDE 1,000 ML IV ONE (15:15)
[2024-07-04 15:24] LABS: HEMATOCRIT 33.4 % (36.0-45.00); MEAN CELL VOLUME 83.8 fL (80.00-100.00); MEAN CORPUSCULAR HEMOGLOBIN 27.5 pg (27.00-32.0); MEAN CORPUSCULAR HGB CONC 32.8 g/dl (32.0-36.0); PLATELET COUNT 305 K/uL (150-450); RED BLOOD COUNT 3.99 M/uL (4.00-6.00); RED CELL DISTRIBUTION WIDTH 15.4 % (11.5-14.5)
[2024-07-04 15:50] LABS: INR 1.05; PARTIAL THROMBOPLASTIN TIME 23.5 SECONDS (22.0-34.0); PROTHROMBIN TIME 11.4 SECONDS (9.0-11.5)
[2024-07-04 15:56] LABS: ALBUMIN 3.4 gm/dL (3.4-5.0); BILIRUBIN TOTAL 0.6 mg/dL (0.3-1.2); CALCIUM 9.3 mg/dL (8.5-10.1); CREATININE SERUM 0.84 mg/dL (0.55-1.02); GFR 71.77; GLOBULINA 3.7 G/DL (2.4-3.5); POTASSIUM 3.86 mEq/L (3.5-5.1); TOTAL PROTEIN 7.1 gm/dL (6.4-8.2)
[2024-07-04 16:00] LABS: ABG PH 7.494 (7.35-7.45); ABG pCO2 25.5 mmHg (35-45)
[2024-07-04 16:01] LABS: BASE EXCESS -2.3 mmol/l; BICARBONATE 19.2 mmol/l (23-25); SaO2 87.5 %; o2 21 %; puncture site BRADIAL RIGHT
[2024-07-04 16:02] LABS: ABG PO2 48.7 mmHg (80-100); allen test SATISFACTORY
[2024-07-04 18:18] LABS: URINE APPEARANCE Clear; URINE BILIRRUBIN Negative (NEGATIVE); URINE BLOOD Negative; URINE COLOR Yellow; URINE GLUCOSE Negative (NEGATIVE); URINE KETONE Negative (NEGATIVE); URINE LEUKOCYTE Negative; URINE NITRATE Negative; URINE PROTEIN Negative (NEGATIVE); URINE UROBILINOGEN 0.2 E.U./dl
[2024-07-04 18:23] LABS: URINE BACTERIA 75.8 uL (0.0-1933); URINE EPITHELIAL CELLS 32.6 uL (0.0-38.8); URINE RBC 6.4 uL (0.0-20.8)
[2024-07-04 18:33] LABS: URINE CAST 0.14 uL (0.0-1.40)
[2024-07-04] MEDS ORDERED: MAGNESIUM SULFATE IN WATER 50 ML IV ONE (19:45)
[2024-07-04] MEDS ORDERED: ENOXAPARIN SODIUM 80 MG/0.8 ML SYRINGE SUBCUTANEO ONE (20:00)
[2024-07-04] MEDS ORDERED: ACETAMINOPHEN 500 MG GEL..CAP PO PRN (20:00)
[2024-07-04] MEDS ORDERED: DEXTROSE 50 % IN WATER 0.5 G/ML DISP.SYRIN IV PRN (20:00)
[2024-07-04] MEDS ORDERED: 0.9 % SODIUM CHLORIDE 1,000 ML IV SCH (20:00)
[2024-07-04] MEDS ORDERED: INSULIN LISPRO 1,000 UNIT/10 ML UNITS SUBCUTANEO PRN (20:00)
[2024-07-04 21:17] VITALS: BP 128/69; O2SAT 97
[2024-07-04] MEDS ORDERED: CEFEPIME HCL 2,000 MG in 0.9 % SODIUM CHLORIDE 100 ML IV SCH (22:49)
[2024-07-04] MEDS ORDERED: VANCOMYCIN HCL 1,000 MG VIAL IV SCH (22:50)
[2024-07-04 23:30] VITALS: BP 137/81; O2SAT 95
[2024-07-05] VITALS (15 sets, daily range): BP systolic 103–146; BP diastolic 65–89; O2SAT 94–100
[2024-07-05] MEDS ORDERED: GUAIFEN/DEXTROMETHORPHAN/PE 10 ML BLIST.PACK PO SCH (01:00)
[2024-07-05] MEDS ORDERED: METHYLPREDNISOLONE SOD SUCC 40 MG VIAL IV SCH (01:00)
[2024-07-05 05:59] LABS: ALBUMIN 3.2 gm/dL (3.4-5.0); BILIRUBIN TOTAL 0.65 mg/dL (0.3-1.2); CALCIUM 9.2 mg/dL (8.5-10.1); CREATININE SERUM 0.68 mg/dL (0.55-1.02); GFR 91.59; GLOBULINA 3.8 G/DL (2.4-3.5); MAGNESIUM 2.1 mg/dL (1.8-2.4); POTASSIUM 4.31 mEq/L (3.5-5.1)
[2024-07-05] MEDS ORDERED: LEVOTHYROXINE SODIUM 125 MCG TABLET PO SCH (06:00)
[2024-07-05 06:19] LABS: HEMATOCRIT 34.1 % (36.0-45.00); HEMOGLOBIN 11.2 g/dL (12.0-15.00); MEAN CELL VOLUME 84.1 fL (80.00-100.00); MEAN CORPUSCULAR HEMOGLOBIN 27.6 pg (27.00-32.0); MEAN CORPUSCULAR HGB CONC 32.9 g/dl (32.0-36.0); PLATELET COUNT 313 K/uL (150-450); RED BLOOD COUNT 4.05 M/uL (4.00-6.00); RED CELL DISTRIBUTION WIDTH 15.7 % (11.5-14.5)
[2024-07-05 06:35] LABS: C-REACTIVE PROTEIN 10.1 MG/DL (0.00-0.29)
[2024-07-05] MEDS ORDERED: INSULIN LISPRO 1,000 UNIT/10 ML UNITS SUBCUTANEO SCH (08:00)
[2024-07-05] MEDS ORDERED: ENOXAPARIN SODIUM 40 MG/0.4 ML SYRINGE SUBCUTANEO SCH (09:00)
[2024-07-05] MEDS ORDERED: AMLODIPINE BESYLATE 5 MG TABLET PO SCH (09:00)
[2024-07-05] MEDS ORDERED: INSULIN GLARGINE,HUM.REC.ANLOG 1,000 UNITS/10 ML UNITS SUBCUTANEO SCH (09:00)
[2024-07-05] MEDS ORDERED: ATORVASTATIN CALCIUM 40 MG TABLET PO SCH (09:00)
[2024-07-05] MEDS ORDERED: FAMOTIDINE/PF 20 MG in 0.9 % SODIUM CHLORIDE 8 ML IV PUSH SCH (09:00)
[2024-07-05] MEDS ORDERED: MIDAZOLAM HCL/PF 5 MG/ML VIAL IV STA (09:39)
[2024-07-05] MEDS ORDERED: PROPOFOL 10,000 MCG/ML VIAL IV PUSH STA (09:41)
[2024-07-05] MEDS ORDERED: CHLORHEXIDINE GLUCONATE 15ML BRUSH KIT MM SCH (09:44)
[2024-07-05] MEDS ORDERED: MIDAZOLAM HCL 100 MG in 0.9 % SODIUM CHLORIDE 100 ML IV SCH (09:45)
[2024-07-05] MEDS ORDERED: FUROsemide 40 MG TABLET PO SCH (10:19)
[2024-07-05 10:39] LABS: ABG PH 7.268 (7.35-7.45); ABG PO2 92.8 mmHg (80-100); ABG pCO2 47.1 mmHg (35-45); SaO2 95.5 %; Tco2 22.5 mmol/l
[2024-07-05 10:41] LABS: ABG PH 7.414 (7.35-7.45); ABG pCO2 33.6 mmHg (35-45)
[2024-07-05 10:41] LABS: allen test SATISFACTORY; o2 100 %; puncture site RADIAL LEFT
[2024-07-05 10:42] LABS: ABG PO2 38.8 mmHg (80-100); BASE EXCESS -2.7 mmol/l; SaO2 73.6 %
[2024-07-05 10:43] LABS: allen test SATISFACTORY; o2 50 %; puncture site RADIAL LEFT
[2024-07-05] MEDS ORDERED: NOREPINEPHRINE BITARTRATE 1 MG/ML AMPUL IV STA (13:46)
[2024-07-05] MEDS ORDERED: NOREPINEPHRINE BITARTRATE 8 MG in DEXTROSE 5 % IN WATER 250 ML IV SCH (14:30)
[2024-07-05] MEDS ORDERED: POLYVINYL ALCOHOL 15 ML DROPS OP SCH (17:00)
[2024-07-06] VITALS (12 sets, daily range): BP systolic 78–137; BP diastolic 57–90; O2SAT 95–100
[2024-07-06 06:53] LABS: HEMATOCRIT 27.9 % (36.0-45.00); HEMOGLOBIN 9.3 g/dL (12.0-15.00); MEAN CELL VOLUME 85.6 fL (80.00-100.00); MEAN CORPUSCULAR HEMOGLOBIN 28.5 pg (27.00-32.0); MEAN CORPUSCULAR HGB CONC 33.3 g/dl (32.0-36.0); PLATELET COUNT 254 K/uL (150-450); RED BLOOD COUNT 3.26 M/uL (4.00-6.00); RED CELL DISTRIBUTION WIDTH 15.7 % (11.5-14.5)
[2024-07-06 07:06] LABS: ALBUMIN 2.6 gm/dL (3.4-5.0); BILIRUBIN TOTAL 0.41 mg/dL (0.3-1.2); CALCIUM 8.5 mg/dL (8.5-10.1); CREATININE SERUM 0.65 mg/dL (0.55-1.02); GFR 96.48; GLOBULINA 3.6 G/DL (2.4-3.5); MAGNESIUM 2.3 mg/dL (1.8-2.4); PHOSPHOROUS 4.2 mg/dL (2.5-4.9); POTASSIUM 3.99 mEq/L (3.5-5.1); TOTAL PROTEIN 6.2 gm/dL (6.4-8.2)
[2024-07-06 08:34] LABS: ABG PO2 105.3 mmHg (80-100); ABG pCO2 37.8 mmHg (35-45); BASE EXCESS -2.1 mmol/l; BICARBONATE 22.4 mmol/l (23-25); SaO2 97.9 %; Tco2 23.5 mmol/l
[2024-07-06] MEDS ORDERED: VANCOMYCIN HCL 1,000 MG VIAL IV SCH (09:00)
[2024-07-06 11:10] LABS: allen test SATISFACTORY; o2 100 %; puncture site RADIAL LEFT
[2024-07-06] MEDS ORDERED: AZITHROMYCIN 500 MG VIAL IV NR (13:00)
[2024-07-06] MEDS ORDERED: FUROsemide 40 MG TABLET PO SCH (17:00)
[2024-07-06] MEDS ORDERED: SOD FERRIC GLUC COMPLX/SUCROSE 62.5 MG/5 ML AMPUL IV NR (18:00)
[2024-07-06] MEDS ORDERED: AMINO ACIDS/PROTEIN HYDROLYS 30 ML BLIST.PACK PO NR (18:00)
[2024-07-07] VITALS (13 sets, daily range): BP systolic 107–125; BP diastolic 73–98; O2SAT 97–100
[2024-07-07 06:04] LABS: ANTI THYROID PEROXIDASE 90 IU/mL (0-34)
[2024-07-07 06:47] LABS: HEMATOCRIT 27.5 % (36.0-45.00); HEMOGLOBIN 9.3 g/dL (12.0-15.00); MEAN CELL VOLUME 83.8 fL (80.00-100.00); MEAN CORPUSCULAR HEMOGLOBIN 28.4 pg (27.00-32.0); MEAN CORPUSCULAR HGB CONC 33.8 g/dl (32.0-36.0); PLATELET COUNT 257 K/uL (150-450); RED BLOOD COUNT 3.28 M/uL (4.00-6.00); RED CELL DISTRIBUTION WIDTH 15.6 % (11.5-14.5)
[2024-07-07 06:54] LABS: ALBUMIN 2.4 gm/dL (3.4-5.0); BILIRUBIN TOTAL 0.54 mg/dL (0.3-1.2); CALCIUM 8.2 mg/dL (8.5-10.1); CREATININE SERUM 0.65 mg/dL (0.55-1.02); GFR 96.48; GLOBULINA 3.4 G/DL (2.4-3.5); MAGNESIUM 2.2 mg/dL (1.8-2.4); PHOSPHOROUS 3.9 mg/dL (2.5-4.9); POTASSIUM 3.56 mEq/L (3.5-5.1); TOTAL PROTEIN 5.8 gm/dL (6.4-8.2)
[2024-07-07] MEDS ORDERED: AZITHROMYCIN 500 MG VIAL IV SCH (09:00)
[2024-07-07] MEDS ORDERED: AMINO ACIDS/PROTEIN HYDROLYS 30 ML BLIST.PACK NGT SCH (09:00)
[2024-07-07 14:04] LABS: ANTI JO 1 < 0.2 AI (0.0-0.9); DNA AB DOUBLE STRABDED < 1 IU/mL (0-9)
[2024-07-07 15:06] LABS: ABG PH 7.386 (7.35-7.45); ABG pCO2 37.6 mmHg (35-45)
[2024-07-07 15:07] LABS: ABG PO2 71.4 mmHg (80-100); BASE EXCESS -2.5 mmol/l; SaO2 93.7 %; Tco2 23.2 mmol/l
[2024-07-07 15:08] LABS: allen test SATISFACTORY; o2 70 %; puncture site RADIAL RIGHT
[2024-07-07] MEDS ORDERED: SOD FERRIC GLUC COMPLX/SUCROSE 62.5 MG in 0.9 % SODIUM CHLORIDE 50 ML IV SCH (17:00)
[2024-07-07] MEDS ORDERED: INSULIN GLARGINE,HUM.REC.ANLOG 1,000 UNITS/10 ML UNITS SUBCUTANEO SCH (21:00)
[2024-07-08] VITALS (12 sets, daily range): BP systolic 112–134; BP diastolic 70–89; O2SAT 95–100
[2024-07-08 06:19] LABS: HEMATOCRIT 29.1 % (36.0-45.00); HEMOGLOBIN 9.8 g/dL (12.0-15.00); MEAN CELL VOLUME 83.3 fL (80.00-100.00); MEAN CORPUSCULAR HEMOGLOBIN 28.1 pg (27.00-32.0); MEAN CORPUSCULAR HGB CONC 33.7 g/dl (32.0-36.0); PLATELET COUNT 280 K/uL (150-450); RED BLOOD COUNT 3.49 M/uL (4.00-6.00); RED CELL DISTRIBUTION WIDTH 15.5 % (11.5-14.5)
[2024-07-08 07:00] LABS: ALBUMIN 2.5 gm/dL (3.4-5.0); BILIRUBIN TOTAL 0.44 mg/dL (0.3-1.2); CALCIUM 8.5 mg/dL (8.5-10.1); CREATININE SERUM 0.64 mg/dL (0.55-1.02); GFR 98.22; GLOBULINA 2.9 G/DL (2.4-3.5); MAGNESIUM 2.5 mg/dL (1.8-2.4); POTASSIUM 3.65 mEq/L (3.5-5.1); TOTAL PROTEIN 5.4 gm/dL (6.4-8.2)
[2024-07-08 08:23] LABS: ABG PH 7.462 (7.35-7.45); ABG PO2 81.7 mmHg (80-100); ABG pCO2 37.5 mmHg (35-45); BASE EXCESS 2.5 mmol/l; BICARBONATE 26.2 mmol/l (23-25); SaO2 96.7 %; Tco2 27.4 mmol/l
[2024-07-08 08:30] LABS: allen test SATISFACTORY; o2 50 %; puncture site RADIAL RIGHT
[2024-07-08 10:05] LABS: IMMUNOGLOBULIN A 195 mg/dL (87-352); IMMUNOGLOBULIN G 558 mg/dL (586-1602); IMMUNOGLOBULIN M 76 mg/dL (26-217)
[2024-07-08] MEDS ORDERED: INSULIN GLARGINE,HUM.REC.ANLOG 1,000 UNITS/10 ML UNITS SUBCUTANEO SCH (21:53)
[2024-07-09] VITALS (7 sets, daily range): BP systolic 113–144; BP diastolic 69–87; O2SAT 96–100
[2024-07-09 06:06] LABS: HEMATOCRIT 30.6 % (36.0-45.00); HEMOGLOBIN 10.4 g/dL (12.0-15.00); MEAN CELL VOLUME 82.9 fL (80.00-100.00); MEAN CORPUSCULAR HEMOGLOBIN 28.3 pg (27.00-32.0); MEAN CORPUSCULAR HGB CONC 34.1 g/dl (32.0-36.0); PLATELET COUNT 275 K/uL (150-450); RED BLOOD COUNT 3.69 M/uL (4.00-6.00); RED CELL DISTRIBUTION WIDTH 15.2 % (11.5-14.5)
[2024-07-09 06:38] LABS: ALBUMIN 2.6 gm/dL (3.4-5.0); BILIRUBIN TOTAL 0.59 mg/dL (0.3-1.2); CALCIUM 8.8 mg/dL (8.5-10.1); CREATININE SERUM 0.59 mg/dL (0.55-1.02); GFR 107.89; POTASSIUM 3.32 mEq/L (3.5-5.1); TOTAL PROTEIN 5.6 gm/dL (6.4-8.2)
[2024-07-09] MEDS ORDERED: ONDANSETRON HCL 2 MG/ML VIAL IV ONE (08:45)
[2024-07-09] MEDS ORDERED: FUROsemide 40 MG/4 ML VIAL IV SCH (09:00)
[2024-07-09] MEDS ORDERED: QUETIAPINE FUMARATE 25 MG TABLET PO SCH (09:00)
[2024-07-09 09:01] LABS: ABG PH 7.448 (7.35-7.45); ABG PO2 68.6 mmHg (80-100); ABG pCO2 44.3 mmHg (35-45); BASE EXCESS 5.1 mmol/l; BICARBONATE 29.9 mmol/l (23-25); SaO2 94.5 %; Tco2 31.3 mmol/l
[2024-07-09 10:06] LABS: allen test SATISFACTORY; o2 40 %; puncture site RADIAL RIGHT
[2024-07-09] MEDS ORDERED: NYSTATIN 30 GM,SILVER SULFADIAZINE 50 GM,ZINC OXIDE 30 GM TOP SCH (11:19)
[2024-07-09] MEDS ORDERED: POTASSIUM CHLORIDE IN WATER 100 ML IV NR (12:00)
[2024-07-09] MEDS ORDERED: PANTOPRAZOLE SODIUM 40 MG TABLET.DR PO NR (12:15)
[2024-07-09 14:25] LABS: ABG PH 7.515 (7.35-7.45); ABG PO2 354.5 mmHg (80-100); BASE EXCESS 8.6 mmol/l; BICARBONATE 32.3 mmol/l (23-25)
[2024-07-09 14:26] LABS: Tco2 33.6 mmol/l; allen test SATISFACTORY; o2 100 %; puncture site RADIAL RIGHT
[2024-07-09] MEDS ORDERED: MONTELUKAST SODIUM 10 MG TABLET PO SCH (17:00)
[2024-07-09] MEDS ORDERED: METHYLPREDNISOLONE SOD SUCC 40 MG VIAL IV SCH (21:00)
[2024-07-09] MEDS ORDERED: LORazepam 2 MG/ML VIAL IV ONE (23:45)
[2024-07-10] VITALS: BP 124/72; O2SAT 100
[2024-07-10 04:00] VITALS: BP 113/72; O2SAT 95
[2024-07-10 07:38] VITALS: BP 104/71; O2SAT 96
[2024-07-10] MEDS ORDERED: PANTOPRAZOLE SODIUM 40 MG TABLET.DR PO SCH (09:00)
[2024-07-10] MEDS ORDERED: INSULIN GLARGINE,HUM.REC.ANLOG 1,000 UNITS/10 ML UNITS SUBCUTANEO SCH (09:00)
[2024-07-10 12:00] VITALS: BP 110/69; O2SAT 98
[2024-07-10 15:18] VITALS: BP 123/77; O2SAT 99
[2024-07-10] MEDS ORDERED: CLONAZEPAM 0.5 MG TABLET PO SCH (17:00)
[2024-07-10 20:04] VITALS: BP 124/89; O2SAT 100
[2024-07-11] VITALS: BP 136/78; BP 90/61; O2SAT 100; O2SAT 98
[2024-07-11 07:24] VITALS: BP 136/80; O2SAT 95
[2024-07-11 07:38] LABS: ALBUMIN 2.8 gm/dL (3.4-5.0); BILIRUBIN TOTAL 0.59 mg/dL (0.3-1.2); CALCIUM 8.8 mg/dL (8.5-10.1); CREATININE SERUM 0.69 mg/dL (0.55-1.02); GFR 90.05; MAGNESIUM 2.3 mg/dL (1.8-2.4); PHOSPHOROUS 2.9 mg/dL (2.5-4.9); POTASSIUM 3.98 mEq/L (3.5-5.1); TOTAL PROTEIN 5.8 gm/dL (6.4-8.2)
[2024-07-11 07:57] LABS: HEMATOCRIT 32.9 % (36.0-45.00); MEAN CELL VOLUME 84.9 fL (80.00-100.00); MEAN CORPUSCULAR HEMOGLOBIN 28.5 pg (27.00-32.0); MEAN CORPUSCULAR HGB CONC 33.5 g/dl (32.0-36.0); PLATELET COUNT 292 K/uL (150-450); RED BLOOD COUNT 3.87 M/uL (4.00-6.00); RED CELL DISTRIBUTION WIDTH 15.7 % (11.5-14.5)
[2024-07-11 10:16] LABS: ABG PH 7.443 (7.35-7.45); ABG PO2 340.2 mmHg (80-100); ABG pCO2 45.7 mmHg (35-45); BASE EXCESS 5.5 mmol/l; BICARBONATE 30.5 mmol/l (23-25); SaO2 99.9 %; Tco2 31.9 mmol/l; allen test SATISFACTORY; puncture site RADIAL RIGHT
[2024-07-11 10:17] LABS: o2 100 %
[2024-07-11 13:57] VITALS: BP 109/76; O2SAT 95
[2024-07-11 15:15] VITALS: BP 118/74; O2SAT 94
[2024-07-11 20:00] VITALS: BP 131/77; O2SAT 96
[2024-07-12 00:04] VITALS: BP 130/74; O2SAT 100
[2024-07-12 04:00] VITALS: BP 133/84; O2SAT 95
[2024-07-12 07:27] VITALS: BP 112/67; O2SAT 100
[2024-07-12] MEDS ORDERED: INSULIN LISPRO 1,000 UNIT/10 ML UNITS SUBCUTANEO SCH (08:00)
[2024-07-12] MEDS ORDERED: INSULIN GLARGINE,HUM.REC.ANLOG 1,000 UNITS/10 ML UNITS SUBCUTANEO SCH (09:00)
[2024-07-12] MEDS ORDERED: GUAIFEN/DEXTROMETHORPHAN/PE 10 ML BLIST.PACK PO SCH (09:00)
[2024-07-12 12:00] VITALS: BP 139/87; O2SAT 93
[2024-07-12 15:00] VITALS: BP 137/81; O2SAT 97
[2024-07-12 20:24] VITALS: BP 156/94; O2SAT 97
[2024-07-12] MEDS ORDERED: LOSARTAN POTASSIUM 25 MG TABLET PO SCH (23:51)
[2024-07-13 00:19] VITALS: BP 142/77; O2SAT 94
[2024-07-13 08:20] VITALS: BP 143/87; O2SAT 98
[2024-07-13 17:01] VITALS: BP 121/76; O2SAT 97
[2024-07-13] MEDS ORDERED: METHYLPREDNISOLONE SOD SUCC 40 MG VIAL IV SCH (21:00)
[2024-07-14 00:33] VITALS: BP 121/78; O2SAT 98
[2024-07-14 07:42] LABS: HEMATOCRIT 38.7 % (36.0-45.00); HEMOGLOBIN 12.7 g/dL (12.0-15.00); MEAN CELL VOLUME 86.1 fL (80.00-100.00); MEAN CORPUSCULAR HEMOGLOBIN 28.2 pg (27.00-32.0); MEAN CORPUSCULAR HGB CONC 32.7 g/dl (32.0-36.0); RED CELL DISTRIBUTION WIDTH 16.4 % (11.5-14.5)
[2024-07-14 08:09] LABS: PLATELET COUNT 121 K/uL (150-450)
[2024-07-14 08:25] LABS: BILIRUBIN TOTAL 0.46 mg/dL (0.3-1.2); CALCIUM 9.1 mg/dL (8.5-10.1); CREATININE SERUM 0.75 mg/dL (0.55-1.02); GFR 81.79; GLOBULINA 2.9 G/DL (2.4-3.5); POTASSIUM 4.85 mEq/L (3.5-5.1); TOTAL PROTEIN 5.9 gm/dL (6.4-8.2)
[2024-07-14 08:29] VITALS: BP 110/70; O2SAT 98
[2024-07-14 11:10] LABS: ABG PH 7.436 (7.35-7.45); ABG PO2 81.9 mmHg (80-100); ABG pCO2 40.7 mmHg (35-45); BASE EXCESS 2.4 mmol/l; BICARBONATE 26.8 mmol/l (23-25); SaO2 96.5 %
[2024-07-14 11:11] LABS: allen test SATISFACTORY; o2 21 %; puncture site RADIAL RIGHT
[2024-07-14 16:23] VITALS: BP 130/81; O2SAT 93
[2024-07-15 01:37] VITALS: BP 115/59; O2SAT 99
[2024-07-15] MEDS ORDERED: INSULIN LISPRO 1,000 UNIT/10 ML UNITS SUBCUTANEO SCH (08:00)
[2024-07-15] MEDS ORDERED: METHYLPREDNISOLONE SOD SUCC 40 MG VIAL IV SCH (09:00)
[2024-07-15] MEDS ORDERED: INSULIN GLARGINE,HUM.REC.ANLOG 1,000 UNITS/10 ML UNITS SUBCUTANEO SCH (09:00)
[2024-07-15 09:07] VITALS: BP 150/87; O2SAT 98
[2024-07-15] MEDS ORDERED: AZITHROMYCIN250 MG PO (14:33)
[2024-07-15] MEDS ORDERED: MEDROLPACK PO (14:33)
[2024-07-15] MEDS ORDERED: IPRATROPIU0.2 MG/1 M IH (14:34)
[2024-07-15] MEDS ORDERED: XOPENEX CO1.25 MG/0. IH (14:35)
[2024-07-15] MEDS ORDERED: LIPITOR40 M1 PO (14:36)
[2024-07-15] MEDS ORDERED: AMLODIPINE BESYL5 MG PO (14:36)
[2024-07-15] MEDS ORDERED: COZAAR50 MG PO (14:36)
[2024-07-15] MEDS ORDERED: CLONAZEPAM0.5 MG PO (14:37)
[2024-07-15] MEDS ORDERED: QUETIAPINE FUMA25 MG PO (14:37)
[2024-07-15] MEDS ORDERED: MONTELUKAST SOD10 MG PO (14:37)
[2024-07-15] MEDS ORDERED: LEVOTHYROXINE125 MCG PO (14:38)
[2024-07-15] MEDS ORDERED: ZYRTEC10 MG PO (14:38)
[2024-07-15] MEDS ORDERED: PANTOPRAZOLE SO40 MG PO (14:38)
[2024-07-15] MEDS ORDERED: INTEGRA PLUS C1 EACH PO (14:39)
[2024-07-15] MEDS ORDERED: JANUMET 50-1,01 EACH PO (14:46)
[2024-07-16 14:41] LABS: IMMUNOGLOBIN IGE 9 IU/mL (6-495); anti MPO AB < 0.2 units (0.0-0.9); anti pr3 < 0.2 units (0.0-0.9); c anca <1:20 titer (Neg:<1:20); p anca <1:20 titer (Neg:<1:20)
== END 2024-07-15 16:51 | disposition home or self-care (01) | DRG 208 ==
LOC: ER 13:59 → ICU-2 20:15 → ICU 07-05 17:49 → MEDI 07-12 18:12 → ICU 07-12 18:35 → MEDI 07-12 20:18
PROVIDERS: General Practice; Internal Medicine; Internal Medicine Infectious Disease; ADMIT Internal Medicine; ATTEND Internal Medicine
PROC: BW24YZZ Computerized Tomography (CT Scan) of Chest and Abdomen using Other Contrast (ICD-10-PCS; 2024-07-04)
PROC: B54DZZZ Ultrasonography of Bilateral Lower Extremity Veins (ICD-10-PCS; 2024-07-04)
PROC: 5A1945Z Respiratory Ventilation, 24-96 Consecutive Hours (ICD-10-PCS; principal; 2024-07-05)
PROC: 0BH17EZ Insertion of Endotracheal Airway into Trachea, Via Natural or Artificial Opening (ICD-10-PCS; 2024-07-05)
PROC: B24BZZZ Ultrasonography of Heart with Aorta (ICD-10-PCS; 2024-07-05)
PROC: 02HV33Z Insertion of Infusion Device into Superior Vena Cava, Percutaneous Approach (ICD-10-PCS; 2024-07-14)
DX: J96.01 Acute respiratory failure with hypoxia (principal); J18.9 Pneumonia, unspecified organism; R65.21 Severe sepsis with septic shock; J45.41 Moderate persistent asthma with (acute) exacerbation; J44.1 Chronic obstructive pulmonary disease with (acute) exacerbation; E11.65 Type 2 diabetes mellitus with hyperglycemia; Z79.4 Long term (current) use of insulin; E03.9 Hypothyroidism, unspecified; I11.0 Hypertensive heart disease with heart failure; E78.5 Hyperlipidemia, unspecified; G47.33 Obstructive sleep apnea (adult) (pediatric); D69.6 Thrombocytopenia, unspecified; D64.9 Anemia, unspecified; I05.0 Rheumatic mitral stenosis; I07.1 Rheumatic tricuspid insufficiency; I27.20 Pulmonary hypertension, unspecified

== ENCOUNTER 2024-07-23 12:24 | Inpatient (IN) | payer OTHER ==
[~2024-07-23] VITALS: Ht 157.5 cm; Wt 93.0 kg
[~2024-07-23 12:24] MED LIST changes: +AMLODIPINE BESYL5 MG PO; +AZITHROMYCIN250 MG PO; +CLONAZEPAM0.5 MG PO; +COZAAR50 MG PO; +INTEGRA PLUS C1 EACH PO; +JANUMET 50-1,01 EACH PO; +MEDROLPACK PO; +MONTELUKAST SOD10 MG PO; +PANTOPRAZOLE SO40 MG PO; +QUETIAPINE FUMA25 MG PO; +ZYRTEC10 MG PO
[2024-07-23] MEDS ORDERED: 0.9 % SODIUM CHLORIDE 1,000 ML IV SCH ×2 (13:30→19:30)
[2024-07-23] MEDS ORDERED: LEVALBUTEROL HCL 0.63 MG/3 ML SOLUTION IH SCH ×2 (13:30→17:00)
[2024-07-23] MEDS ORDERED: CEFTRIAXONE SODIUM 1,000 MG VIAL IV ONE (13:30)
[2024-07-23] MEDS ORDERED: LEVALBUTEROL HCL 0.63 MG/3 ML SOLUTION IH ONE (13:36)
[2024-07-23] MEDS ORDERED: METHYLPREDNISOLONE SOD SUCC 125 MG VIAL ONE (13:36)
[2024-07-23] MEDS ORDERED: CEFTRIAXONE SODIUM 1,000 MG VIAL ONE (13:37)
[2024-07-23 14:08] LABS: HEMATOCRIT 33.6 % (36.0-45.00); HEMOGLOBIN 10.9 g/dL (12.0-15.00); MEAN CELL VOLUME 86.7 fL (80.00-100.00); MEAN CORPUSCULAR HEMOGLOBIN 28.2 pg (27.00-32.0); MEAN CORPUSCULAR HGB CONC 32.5 g/dl (32.0-36.0); PLATELET COUNT 174 K/uL (150-450); RED BLOOD COUNT 3.87 M/uL (4.00-6.00); RED CELL DISTRIBUTION WIDTH 17.7 % (11.5-14.5)
[2024-07-23 14:30] LABS: ALBUMIN 3.4 gm/dL (3.4-5.0); BILIRUBIN TOTAL 0.79 mg/dL (0.3-1.2); CALCIUM 8.7 mg/dL (8.5-10.1); CREATININE SERUM 0.69 mg/dL (0.55-1.02); GFR 89.69; GLOBULINA 3.2 G/DL (2.4-3.5); POTASSIUM 3.36 mEq/L (3.5-5.1); TOTAL PROTEIN 6.6 gm/dL (6.4-8.2)
[2024-07-23 14:31] LABS: D DIMER 0.61 MG/L; PARTIAL THROMBOPLASTIN TIME 23.3 SECONDS (22.0-34.0)
[2024-07-23 14:35] LABS: ABG PH 7.504 (7.35-7.45); ABG PO2 66.7 mmHg (80-100); ABG pCO2 27.4 mmHg (35-45); BASE EXCESS -0.6 mmol/l; SaO2 94.8 %
[2024-07-23 14:37] LABS: BICARBONATE 21.1 mmol/l (23-25); Tco2 21.9 mmol/l; o2 21 %
[2024-07-23 14:38] LABS: PROTHROMBIN TIME 10.9 SECONDS (9.0-11.5)
[2024-07-23 14:38] LABS: allen test SATISFACTORY; puncture site RADIAL RIGHT
[2024-07-23] MEDS ORDERED: IPRATROPIUM BROMIDE 0.5 MG/2.5 ML AMPUL.NEB IH ONE (16:59)
[2024-07-23] MEDS ORDERED: LEVALBUTEROL HCL 1.25 MG/3 ML SOLUTION IH ONE (16:59)
[2024-07-23] MEDS ORDERED: IPRATROPIUM BROMIDE 0.5 MG/2.5 ML AMPUL.NEB IH SCH ×2 (17:00→21:00)
[2024-07-23] MEDS ORDERED: MONTELUKAST SODIUM 10 MG TABLET PO SCH (19:22)
[2024-07-23] MEDS ORDERED: METHYLPREDNISOLONE SOD SUCC 40 MG VIAL IV SCH (19:29)
[2024-07-23] MEDS ORDERED: DEXTROSE 50 % IN WATER 0.5 G/ML DISP.SYRIN IV PRN (19:30)
[2024-07-23] MEDS ORDERED: POTASSIUM CHLORIDE/NACL 0.9% 1,000 ML IV ONE (19:30)
[2024-07-23] MEDS ORDERED: ACETAMINOPHEN 500 MG GEL..CAP PO PRN (19:30)
[2024-07-23] MEDS ORDERED: INSULIN LISPRO 1,000 UNIT/10 ML UNITS SUBCUTANEO PRN (19:30)
[2024-07-23] MEDS ORDERED: FUROsemide 20 MG/2 ML VIAL ONE (19:51)
[2024-07-23] MEDS ORDERED: GUAIFEN/DEXTROMETHORPHAN/PE 10 ML BLIST.PACK PO ONE (19:51)
[2024-07-23] MEDS ORDERED: METHYLPREDNISOLONE SOD SUCC 40 MG VIAL ONE (19:51)
[2024-07-23] MEDS ORDERED: LEVALBUTEROL HCL 1.25 MG/3 ML SOLUTION IH SCH (21:00)
[2024-07-23] MEDS ORDERED: GUAIFEN/DEXTROMETHORPHAN/PE 10 ML BLIST.PACK PO SCH (21:00)
[2024-07-23] MEDS ORDERED: FUROsemide 20 MG/2 ML VIAL IV SCH (21:00)
[2024-07-23] MEDS ORDERED: CLONAZEPAM 0.5 MG TABLET PO SCH (21:00)
[2024-07-23 21:07] LABS: MAGNESIUM 1.7 mg/dL (1.8-2.4)
[2024-07-23 21:08] LABS: PH,URINE 5.5 (5.0-8.0); URINE APPEARANCE Clear; URINE BILIRRUBIN Negative (NEGATIVE); URINE BLOOD Negative; URINE COLOR Yellow; URINE KETONE Negative (NEGATIVE); URINE LEUKOCYTE Negative; URINE NITRATE Negative; URINE PROTEIN Negative (NEGATIVE); URINE UROBILINOGEN 0.2 E.U./dl
[2024-07-23 21:10] LABS: URINE BACTERIA 40.3 uL (0.0-1933); URINE RBC 10.3 uL (0.0-20.8); URINE WBC 6.3 uL (0.0-23.2)
[2024-07-23 21:13] LABS: URINE CAST 0.14 uL (0.0-1.40); URINE GLUCOSE 500 MG/DL (NEGATIVE)
[2024-07-23 21:14] LABS: C-REACTIVE PROTEIN 9.14 MG/DL (0.00-0.29)
[2024-07-23 23:03] VITALS: BP 122/83; O2SAT 99
[2024-07-24 02:17] VITALS: BP 106/65; O2SAT 97
[2024-07-24] MEDS ORDERED: POTASSIUM BICARBONATE/CIT AC 25 MEQ TABLET.EFF PO ONE (02:45)
[2024-07-24] MEDS ORDERED: MAGNESIUM SULFATE IN WATER 50 ML IV ONE (02:45)
[2024-07-24 07:41] LABS: HEMATOCRIT 31.2 % (36.0-45.00); HEMOGLOBIN 10.4 g/dL (12.0-15.00); MEAN CORPUSCULAR HEMOGLOBIN 29.2 pg (27.00-32.0); MEAN CORPUSCULAR HGB CONC 33.2 g/dl (32.0-36.0); PLATELET COUNT 145 K/uL (150-450); RED BLOOD COUNT 3.55 M/uL (4.00-6.00); RED CELL DISTRIBUTION WIDTH 17.9 % (11.5-14.5)
[2024-07-24] MEDS ORDERED: INSULIN LISPRO 1,000 UNIT/10 ML UNITS SUBCUTANEO STA (08:01)
[2024-07-24 08:10] LABS: ALBUMIN 2.9 gm/dL (3.4-5.0); BILIRUBIN TOTAL 0.54 mg/dL (0.3-1.2); CALCIUM 8.4 mg/dL (8.5-10.1); CREATININE SERUM 0.67 mg/dL (0.55-1.02); GFR 92.79; GLOBULINA 2.7 G/DL (2.4-3.5); MAGNESIUM 2.4 mg/dL (1.8-2.4); PHOSPHOROUS 4.3 mg/dL (2.5-4.9); TOTAL PROTEIN 5.6 gm/dL (6.4-8.2)
[2024-07-24 08:19] LABS: TSH 0.243 uIU/mL (0.358-3.74)
[2024-07-24] MEDS ORDERED: AZITHROMYCIN 500 MG VIAL IV ONE ×2 (08:40→13:12)
[2024-07-24] MEDS ORDERED: NIFEDIPINE 30 MG TAB.SA.OSM PO SCH (09:00)
[2024-07-24] MEDS ORDERED: FAMOTIDINE/PF 20 MG in 0.9 % SODIUM CHLORIDE 8 ML IV PUSH SCH (09:00)
[2024-07-24] MEDS ORDERED: IRBESARTAN 75 MG TABLET PO SCH (09:00)
[2024-07-24] MEDS ORDERED: AZITHROMYCIN 500 MG VIAL IV SCH (09:00)
[2024-07-24] MEDS ORDERED: INSULIN GLARGINE,HUM.REC.ANLOG 1,000 UNITS/10 ML UNITS SUBCUTANEO SCH (09:00)
[2024-07-24] MEDS ORDERED: QUETIAPINE FUMARATE 25 MG TABLET PO SCH (09:00)
[2024-07-24] MEDS ORDERED: AZITHROMYCIN 500 MG in DEXTROSE 5 % IN WATER 250 ML IV SCH (09:00)
[2024-07-24] MEDS ORDERED: CEFTRIAXONE SODIUM 2,000 MG in 0.9 % SODIUM CHLORIDE 100 ML IV SCH (09:00)
[2024-07-24] MEDS ORDERED: ATORVASTATIN CALCIUM 20 MG TABLET PO SCH (09:00)
[2024-07-24] MEDS ORDERED: ENOXAPARIN SODIUM 40 MG/0.4 ML SYRINGE SUBCUTANEO SCH (09:00)
[2024-07-24 10:28] LABS: puncture site RADIAL RIGHT
[2024-07-24 10:46] VITALS: BP 115/74; O2SAT 99
[2024-07-24] MEDS ORDERED: INSULIN LISPRO 1,000 UNIT/10 ML UNITS SUBCUTANEO SCH (12:00)
[2024-07-24 13:34] LABS: ABG PH 7.454 (7.35-7.45); ABG pCO2 30.5 mmHg (35-45)
[2024-07-24 13:36] LABS: ABG PO2 65.1 mmHg (80-100); BASE EXCESS -1.8 mmol/l; SaO2 93.5 %; Tco2 21.8 mmol/l; allen test SATISFACTORY
[2024-07-24 13:37] LABS: BICARBONATE 20.9 mmol/l (23-25); o2 21 %
[2024-07-24 17:50] VITALS: BP 120/76; O2SAT 93
[2024-07-24] MEDS ORDERED: IRON FUM,PS/FOLIC/BCOMP,C NO.9 1 CAP CAPSULE PO SCH (20:52)
[2024-07-25 02:34] VITALS: BP 100/57; O2SAT 96
[2024-07-25 02:54] LABS: HEMOGLOBIN 11.6 g/dL (12.0-15.00); MEAN CELL VOLUME 86.8 fL (80.00-100.00); MEAN CORPUSCULAR HGB CONC 32.3 g/dl (32.0-36.0); PLATELET COUNT 215 K/uL (150-450); RED BLOOD COUNT 4.14 M/uL (4.00-6.00); RED CELL DISTRIBUTION WIDTH 17.8 % (11.5-14.5)
[2024-07-25] MEDS ORDERED: LEVOTHYROXINE SODIUM 125 MCG TABLET PO SCH (06:00)
[2024-07-25 07:47] LABS: HEMATOCRIT 32.3 % (36.0-45.00); HEMOGLOBIN 10.6 g/dL (12.0-15.00); MEAN CELL VOLUME 85.4 fL (80.00-100.00); MEAN CORPUSCULAR HEMOGLOBIN 28.1 pg (27.00-32.0); MEAN CORPUSCULAR HGB CONC 32.9 g/dl (32.0-36.0); PLATELET COUNT 188 K/uL (150-450); RED BLOOD COUNT 3.78 M/uL (4.00-6.00); RED CELL DISTRIBUTION WIDTH 18.1 % (11.5-14.5)
[2024-07-25] MEDS ORDERED: TUBERCULIN,PURIF.PROT.DERIV. 10 SKIN.TEST SKIN.TEST ID NR (08:00)
[2024-07-25] MEDS ORDERED: AZITHROMYCIN 500 MG VIAL IV ONE (08:05)
[2024-07-25 08:27] LABS: BILIRUBIN TOTAL 0.57 mg/dL (0.3-1.2); CALCIUM 8.7 mg/dL (8.5-10.1); CREATININE SERUM 0.59 mg/dL (0.55-1.02); GFR 107.46; GLOBULINA 2.9 G/DL (2.4-3.5); MAGNESIUM 2.2 mg/dL (1.8-2.4); PHOSPHOROUS 3.7 mg/dL (2.5-4.9); POTASSIUM 3.61 mEq/L (3.5-5.1); TOTAL PROTEIN 5.9 gm/dL (6.4-8.2)
[2024-07-25] MEDS ORDERED: AMINO ACIDS 1 EACH TABLET PO SCH (09:00)
[2024-07-25 09:41] VITALS: BP 112/70; O2SAT 95
[2024-07-25 12:17] VITALS: O2SAT 95
[2024-07-25 15:22] VITALS: O2SAT 95
[2024-07-25 15:53] VITALS: BP 111/70; O2SAT 93
[2024-07-25] MEDS ORDERED: EMPAGLIFLOZIN 10 MG TABLET PO NR (17:00)
[2024-07-25] MEDS ORDERED: SACUBITRIL/VALSARTAN 1 EACH TABLET PO SCH (17:00)
[2024-07-25 20:15] VITALS: O2SAT 90
[2024-07-25] MEDS ORDERED: INSULIN GLARGINE,HUM.REC.ANLOG 1,000 UNITS/10 ML UNITS SUBCUTANEO SCH (21:00)
[2024-07-26] VITALS (9 sets, daily range): BP systolic 105–117; BP diastolic 66–78; O2SAT 90–99
[2024-07-26] MEDS ORDERED: AZITHROMYCIN 500 MG VIAL IV ONE (08:50)
[2024-07-26] MEDS ORDERED: EMPAGLIFLOZIN 10 MG TABLET PO SCH (09:00)
[2024-07-26] MEDS ORDERED: METHYLPREDNISOLONE SOD SUCC 40 MG VIAL IV SCH (17:00)
[2024-07-26] MEDS ORDERED: IPRATROPIUM BROMIDE 0.5 MG/2.5 ML AMPUL.NEB IH SCH (18:00)
[2024-07-26] MEDS ORDERED: LEVALBUTEROL HCL 1.25 MG/3 ML SOLUTION IH SCH (18:00)
[2024-07-26] MEDS ORDERED: FAMOtidine 20 MG TABLET PO SCH (21:00)
[2024-07-27] VITALS (9 sets, daily range): BP systolic 104–142; BP diastolic 65–85; O2SAT 96–100
[2024-07-27 06:13] LABS: HEMATOCRIT 35.7 % (36.0-45.00); HEMOGLOBIN 11.8 g/dL (12.0-15.00); MEAN CELL VOLUME 85.8 fL (80.00-100.00); MEAN CORPUSCULAR HEMOGLOBIN 28.3 pg (27.00-32.0); PLATELET COUNT 193 K/uL (150-450); RED BLOOD COUNT 4.16 M/uL (4.00-6.00); RED CELL DISTRIBUTION WIDTH 17.3 % (11.5-14.5)
[2024-07-27 06:54] LABS: ALBUMIN 3.1 gm/dL (3.4-5.0); BILIRUBIN TOTAL 0.56 mg/dL (0.3-1.2); CALCIUM 9.2 mg/dL (8.5-10.1); CREATININE SERUM 0.56 mg/dL (0.55-1.02); GFR 114.13; GLOBULINA 2.9 G/DL (2.4-3.5); MAGNESIUM 2.5 mg/dL (1.8-2.4); PHOSPHOROUS 4.3 mg/dL (2.5-4.9); POTASSIUM 4.24 mEq/L (3.5-5.1)
[2024-07-27] MEDS ORDERED: AZITHROMYCIN 500 MG VIAL IV ONE (08:58)
[2024-07-27] MEDS ORDERED: SODIUM CL 0.9% 100 ML IV.SOLN IV ONE (08:59)
[2024-07-27] MEDS ORDERED: ATORVASTATIN CALCIUM 40 MG TABLET PO SCH (09:00)
[2024-07-27] MEDS ORDERED: FUROsemide 20 MG/2 ML VIAL IV SCH (09:00)
[2024-07-28 01:00] VITALS: BP 109/69; O2SAT 97
[2024-07-28 01:06] VITALS: O2SAT 98
[2024-07-28 05:50] VITALS: O2SAT 93
[2024-07-28] MEDS ORDERED: AZITHROMYCIN 500 MG VIAL IV ONE (08:00)
[2024-07-28] MEDS ORDERED: INSULIN LISPRO 1,000 UNIT/10 ML UNITS SUBCUTANEO SCH (08:00)
[2024-07-28 08:28] VITALS: BP 134/90; BP 138/87; O2SAT 95
[2024-07-28 09:01] VITALS: O2SAT 95
== END 2024-07-28 11:48 | disposition designated cancer center or children's hospital (05) | DRG 194 ==
LOC: ER 12:26 → MEDJ 20:52 → SURH 20:52 → MEDJ 21:27 → MEDI 07-24 17:04
PROVIDERS: Emergency Medicine; General Practice; ADMIT Internal Medicine; ATTEND Internal Medicine
PROC: BW24YZZ Computerized Tomography (CT Scan) of Chest and Abdomen using Other Contrast (ICD-10-PCS; 2024-07-23)
PROC: B24BZZZ Ultrasonography of Heart with Aorta (ICD-10-PCS; 2024-07-24)
PROC: 4A12X4Z Monitoring of Cardiac Electrical Activity, External Approach (ICD-10-PCS; principal; 2024-07-25)
DX: J18.9 Pneumonia, unspecified organism (principal); I38 Endocarditis, valve unspecified; J45.41 Moderate persistent asthma with (acute) exacerbation; M35.89 Other specified systemic involvement of connective tissue; E03.9 Hypothyroidism, unspecified; E78.5 Hyperlipidemia, unspecified; E11.65 Type 2 diabetes mellitus with hyperglycemia; Z79.4 Long term (current) use of insulin; I05.0 Rheumatic mitral stenosis; J44.9 Chronic obstructive pulmonary disease, unspecified; I11.0 Hypertensive heart disease with heart failure; I50.9 Heart failure, unspecified; R59.1 Generalized enlarged lymph nodes; G47.33 Obstructive sleep apnea (adult) (pediatric)

== ENCOUNTER 2024-10-02 14:41 | Emergency (ER) | payer OTHER ==
[~2024-10-02] VITALS: Ht 157.5 cm; Wt 86.2 kg
[2024-10-02] MEDS ORDERED: TOPROL XL25 M1 PO (15:55)
[2024-10-02] MEDS ORDERED: PROTONIX40 M1 PO (15:56)
[2024-10-02] MEDS ORDERED: TIROSINT125 MCG PO (15:56)
[2024-10-02] MEDS ORDERED: XARELTO20 MG PO (15:56)
[2024-10-02] MEDS ORDERED: SERTRALINE20 MG/1 ML PO (15:56)
[2024-10-02] MEDS ORDERED: METFORMIN HCL1000 M2 PO (15:57)
[2024-10-02 17:05] LABS: HEMATOCRIT 38.2 % (36.0-45.00); MEAN CELL VOLUME 81.1 fL (80.00-100.00); MEAN CORPUSCULAR HEMOGLOBIN 27.6 pg (27.00-32.0); PLATELET COUNT 338 K/uL (150-450); RED BLOOD COUNT 4.71 M/uL (4.00-6.00); RED CELL DISTRIBUTION WIDTH 15.6 % (11.5-14.5)
[2024-10-02 17:30] LABS: ALBUMIN 3.8 gm/dL (3.4-5.0); BILIRUBIN TOTAL 0.43 mg/dL (0.3-1.2); CALCIUM 10.1 mg/dL (8.5-10.1); CREATININE SERUM 0.55 mg/dL (0.55-1.02); GFR 116.53; GLOBULINA 4.2 G/DL (2.4-3.5); POTASSIUM 3.64 mEq/L (3.5-5.1)
[2024-10-02 17:33] LABS: PH,URINE 6.5 (5.0-8.0); URINE APPEARANCE Clear; URINE BILIRRUBIN Negative (NEGATIVE); URINE BLOOD Negative; URINE COLOR Yellow; URINE GLUCOSE Negative (NEGATIVE); URINE KETONE Negative (NEGATIVE); URINE LEUKOCYTE Negative; URINE NITRATE Negative; URINE PROTEIN Negative (NEGATIVE); URINE UROBILINOGEN 0.2 E.U./dl
[2024-10-02 18:10] LABS: URINE BACTERIA 702.4 uL (0.0-1933); URINE CAST 0.14 uL (0.0-1.40); URINE EPITHELIAL CELLS 21.5 uL (0.0-38.8); URINE RBC 12.5 uL (0.0-20.8); URINE WBC 16.1 uL (0.0-23.2)
== END 2024-10-02 21:29 | disposition home or self-care (01) ==
LOC: ER 14:44
PROVIDERS: Emergency Medicine
DX: I10 Essential (primary) hypertension (principal); E11.9 Type 2 diabetes mellitus without complications; Z79.84 Long term (current) use of oral hypoglycemic drugs; E03.9 Hypothyroidism, unspecified; Z88.8 Allergy status to other drugs, medicaments and biological substances